=== PATIENT | female | born 1950 | race Asian ===

== ENCOUNTER 2020-07-12 12:32 | Outpatient (REF) | payer MEDICARE, SELFPAY ==
--- NOTE | 2020-07-12 12:37 | MM_ITS ---
EXAMINATION: MM SCREENING DIGITAL BREAST TOMOSYNTHESIS, BILATERAL CLINICAL INFORMATION: Screening. Asymptomatic. The lifetime risk of breast cancer based on the Tyrer-Cuzick Model is 4.0%. COMPARISON: Mammography: June 11, 2019 and studies dating back to July 23, 2011 TECHNIQUE: Digital breast tomosynthesis is performed in both the craniocaudal and mediolateral oblique views along with computer-aided detection (CAD). Synthesized 2D images are generated from the tomosynthesis. FINDINGS: The breasts are extremely dense, which lowers the sensitivity of mammography (ACR BI-RADS breast composition Category d). There are no significant masses, abnormal calcifications, or other abnormalities. MM/MM tomosynthesis screening BI IMPRESSION: There are no significant changes from prior study. ASSESSMENT: BI-RADS 1: Negative RECOMMENDATION: Routine annual mammography screening. This patient's information was entered into a reminder system with a target due date for their next mammogram.
== END 2020-07-12 12:33 | disposition home or self-care (01) ==
LOC: HO.MAMMO 12:32
PROVIDERS: PCP Internal Medicine; Visit Provider Internal Medicine
DX: Z12.31 Encounter for screening mammogram for malignant neoplasm of breast (principal)
CPT/HCPCS: 77063; 77067

== ENCOUNTER 2020-08-05 07:30 | Outpatient (REF) | payer MEDICARE, SELFPAY ==
[2020-08-05 08:11] LABS: MANUAL DIFF FLAG NO
[2020-08-05 08:16] LABS: Basophils Percent Auto 0.8 % (0-2); Eosinophils Absolute Auto 0.2 X10*3/uL (0.0-0.4); Eosinophils Percent Auto 3.3 % (0-4); Hematocrit 33.8 % (37-47); Imm Gran Abs Auto 0.01 X10*3/uL (0.00-0.03); Imm Gran Pct Auto 0.2 % (0.0-0.4); Lymphocytes Absolute Auto 1.9 X10*3/uL (1.2-4.9); Lymphocytes Percent Auto 37.1 % (20-40); Mean Corpuscular HGB Conc 32.5 g/dl (31.0-35.0); Mean Platelet Volume 8.8 fL (9.4-12.3); Monocytes Absolute Auto 0.5 X10*3/uL (0.1-1.2); Neutrophils Absolute Auto 2.5 X10*3/uL (2.0-8.3); Neutrophils Percent Auto 49.6 % (45-73); Platelet Count 312 X10*3/uL (160-400); Red Blood Count 3.93 X10*6/uL (4.20-5.50); Red Cell Distribution Width 12.9 % (11.0-16.0); White Blood Count 5.1 X10*3/uL (4.8-10.8)
[2020-08-05 08:34] LABS: Alanine Aminotransferase 19 U/L (0-31); Albumin Level 4.3 g/dL (3.5-5.0); Alkaline Phosphatase 45 U/L (39-117); Anion Gap 11 (12-20); Aspartate Amino Transferase 25 U/L (5-31); Bilirubin Total 0.3 mg/dL (0.0-1.0); Blood Urea Nitrogen 11 mg/dL (9-16); Calcium 8.6 mg/dL (8.4-10.2); Carbon Dioxide 29 mmol/L (22-29); Chloride 101 mmol/L (96-108); Cholesterol 168 mg/dL; Estimated Glomerular Filt Rate > 60; Glucose Fasting 102 mg/dL (60-99); HDL Cholesterol 78 mg/dL; LDL Cholesterol Calculated 76 mg/dl; Potassium 4.4 mmol/l (3.3-5.1); Sodium 137 mmol/L (135-145); Total Protein 7.2 g/dL (6.5-8.0); Triglycerides 72 mg/dL
[2020-08-05 08:40] LABS: Creatinine Urine 18.38 mg/dL; Microalbumin Urine < 5.0 mg/L
[2020-08-05 08:59] LABS: Thyroid Stimulating Hormone 0.87 uIU/mL (0.32-4.0); Vitamin D 25-OH Total 47.2 ng/mL (>30)
[2020-08-05 10:11] LABS: T4 Thyroxine 4.7 ug/dL (4.5-12.0)
[2020-08-07 08:31] LABS: Folate 19.1 ng/mL (> or = 4.0); Vitamin B12 746 pg/mL (200-900)
== END 2020-08-05 07:31 | disposition home or self-care (01) ==
LOC: HO.LAB 07:30
PROVIDERS: Visit Provider Internal Medicine
DX: E11.65 Type 2 diabetes mellitus with hyperglycemia (principal); E78.00 Pure hypercholesterolemia, unspecified; K21.9 Gastro-esophageal reflux disease without esophagitis; F20.0 Paranoid schizophrenia
CPT/HCPCS: 36415; 80053; 80061; 82043; 82306; 82607; 82746; 84436; 84443; 85025

== ENCOUNTER → 2020-08-29 13:30 | Outpatient (BNVA) | payer MEDICARE, SELFPAY | PROVIDERS: PCP Internal Medicine; Referring Provider Internal Medicine; Visit Provider Nurse Practitioner | DX: Z13.89 Encounter for screening for other disorder (principal) | CPT/HCPCS: Q3014 ==

== ENCOUNTER → 2020-10-06 13:50 | Outpatient (BNV) | payer MEDICARE, SELFPAY | PROVIDERS: PCP Internal Medicine; Visit Provider Internal Medicine Medical Oncology | DX: D64.9 Anemia, unspecified (principal); Z86.711 Personal history of pulmonary embolism; Z79.82 Long term (current) use of aspirin | CPT/HCPCS: 99212; 99213 ==

== ENCOUNTER → 2021-02-27 14:25 | Outpatient (BNVA) | payer MEDICARE, SELFPAY | PROVIDERS: PCP Internal Medicine; Visit Provider Nurse Practitioner | DX: K21.9 Gastro-esophageal reflux disease without esophagitis (principal); K59.04 Chronic idiopathic constipation | CPT/HCPCS: 99212 ==

== ENCOUNTER 2021-05-19 07:37 | Outpatient (REF) | payer MEDICARE, SELFPAY ==
[2021-05-19 09:01] LABS: MANUAL DIFF FLAG NO
[2021-05-19 09:19] LABS: Basophils Percent Auto 0.7 % (0-2); Eosinophils Absolute Auto 0.2 X10*3/uL (0.0-0.4); Eosinophils Percent Auto 3.6 % (0-4); Imm Gran Abs Auto 0.02 X10*3/uL (0.00-0.03); Imm Gran Pct Auto 0.3 % (0.0-0.4); Immature Retic Fraction 6.6 % (3.0-15.9); Lymphocytes Absolute Auto 2.3 X10*3/uL (1.2-4.9); Lymphocytes Percent Auto 38.6 % (20-40); Mean Corpuscular HGB Conc 33.3 g/dl (31.0-35.0); Mean Corpuscular Hemoglobin 27.7 pg (27.0-33.0); Mean Corpuscular Volume 83.1 fL (80-98); Mean Platelet Volume 9.8 fL (9.4-12.3); Monocytes Absolute Auto 0.4 X10*3/uL (0.1-1.2); Monocytes Percent Auto 7.3 % (2-11); Neutrophils Percent Auto 49.5 % (45-73); Platelet Count 289 X10*3/uL (160-400); Red Blood Count 4.33 X10*6/uL (4.20-5.50); Red Cell Distribution Width 12.7 % (11.0-16.0); Retic HGB Equivalent 32.4 pg (30.0-35.0); Reticulocyte Percent 1.7 % (0.5-1.8); Reticulocytes Absolute 0.071 X10*6/uL (0.026-0.095); White Blood Count 6.1 X10*3/uL (4.8-10.8)
[2021-05-19 09:29] LABS: Glucose Urine UA NEG (NEG); Leukocyte Esterase Urine TRACE (NEG); Nitrite Urine NEG (NEG); Specific Gravity - Urine <= 1.005 (1.005-1.025); Urine Blood NEG (NEG); Urine Ketones NEG (NEG); Urine Protein NEG (NEG-TRACE)
[2021-05-19 09:31] LABS: Appearance Urine CLEAR; Color Urine YELLOW
[2021-05-19 09:35] LABS: Alanine Aminotransferase 12 U/L (0-31); Albumin Level 4.7 g/dL (3.5-5.0); Alkaline Phosphatase 43 U/L (39-117); Anion Gap 13 (12-20); Aspartate Amino Transferase 20 U/L (5-31); Bilirubin Total 0.4 mg/dL (0.0-1.0); Blood Urea Nitrogen 9 mg/dL (9-16); Calcium 9.6 mg/dL (8.4-10.2); Carbon Dioxide 27 mmol/L (22-29); Chloride 103 mmol/L (96-108); Cholesterol 174 mg/dL; Estimated Glomerular Filt Rate > 60; Glucose Random 108 mg/dL (60-115); HDL Cholesterol 67 mg/dL; Iron 115 mcg/dL (30-160); LDL Cholesterol Calculated 88 mg/dl; Percent Iron Saturation 39 % (15-50); Potassium 4.6 mmol/L (3.3-5.1); Sodium 138 mmol/L (135-145); Total Iron Binding Capacity 295 mcg/dL (228-428); Total Protein 7.8 g/dL (6.5-8.0); Triglycerides 99 mg/dL; Unsaturated Iron Binding 180 ug/dL
[2021-05-19 09:36] LABS: Creatinine Urine 23.64 mg/dL; Microalbumin Urine < 5.0 mg/L
[2021-05-19 10:05] LABS: Free T4 (Free Thyroxine) 1.03 ng/dL (0.71-1.85); Thyroid Stimulating Hormone 1.03 uIU/mL (0.32-4.0); Vitamin D 25-OH Total 54.6 ng/mL (>30)
[2021-05-19 10:13] LABS: Mucus Urine TRACE /LPF; RBC Urine 0 /HPF (0); Squamous Epithelial Cell Urine TRACE /LPF
[2021-05-19 10:54] LABS: Ferritin 215 ng/mL (10-250)
[2021-05-21 08:23] LABS: Folate > 20.0 ng/mL (> or = 4.0); Vitamin B12 1000 pg/mL (200-900)
[2021-05-22 12:55] LABS: Estimated Average Glucose 123 mg/dL; Hemoglobin A1c % 5.9 %
== END 2021-05-19 07:38 | disposition home or self-care (01) ==
LOC: HO.LAB 07:37
PROVIDERS: PCP Internal Medicine; Visit Provider Internal Medicine
DX: D64.9 Anemia, unspecified (principal); E11.65 Type 2 diabetes mellitus with hyperglycemia; E78.00 Pure hypercholesterolemia, unspecified
CPT/HCPCS: 36415; 80053; 80061; 81001; 82043; 82306; 82607; 82728; 82746; 83036; 83540; 84439; 84443; 85025; 85045

== ENCOUNTER 2021-07-20 13:19 | Outpatient (REF) | payer MEDICARE, SELFPAY ==
--- NOTE | ~2021-07-20 | MM_ITS ---
EXAMINATION: MM SCREENING DIGITAL BREAST TOMOSYNTHESIS, BILATERAL CLINICAL INFORMATION: Screening. Asymptomatic. The lifetime risk of breast cancer based on the Tyrer-Cuzick Model is 4%. COMPARISON: Mammography: 07/12/2020, 06/11/2019, 06/05/2018 TECHNIQUE: Digital breast tomosynthesis is performed in both the craniocaudal and mediolateral oblique views along with computer-aided detection (CAD). Synthesized 2D images are generated from the tomosynthesis. FINDINGS: The breasts are heterogeneously dense, which may obscure small masses (ACR BI-RADS breast composition Category c). Breast tissue composition borders on extremely dense. Parenchymal pattern is similar to prior study. No significant mass or architectural abnormality. No abnormal calcifications. There is deodorant artifact overlying both axilla, on the skin on tomography. The skin contours are smooth. No significant changes. MM/MM tomosynthesis screening BI IMPRESSION: No mammographic evidence of malignancy. ASSESSMENT: BI-RADS 2: Benign RECOMMENDATION: Routine annual mammography screening. This patient's information was entered into a reminder system with a target due date for their next mammogram.
== END 2021-07-20 13:20 | disposition home or self-care (01) ==
LOC: HO.MAMMO 13:19
PROVIDERS: Visit Provider Internal Medicine
DX: Z12.31 Encounter for screening mammogram for malignant neoplasm of breast (principal)
CPT/HCPCS: 77063; 77067

== ENCOUNTER 2021-12-05 14:29 | Outpatient (REF) | payer MEDICARE, SELFPAY ==
--- NOTE | ~2021-12-05 | MM_ITS ---
EXAMINATION: BONE DENSITOMETRY CLINICAL INDICATION: History of osteopenia. Other specified disorders of bone density and structure. Postmenopausal. COMPARISON: Previous BD dated 11/20/2018 and baseline BD dated 10/17/2007. TECHNIQUE: Using a HeadMix DXA System (software version: 13.1) manufactured by [employer], dual-energy x-ray absorptiometry was performed of the lumbar spine and left hip. The images are of good technical quality. Summary results are attached. FINDINGS: AP SPINE L1-L3 (excluding L4): The data of L1-L4 has been changed to exclude the L4 vertebral body, because degenerative sclerosis at this level may cause overestimation of lumbar spine density. Current: BMD 0.921 g/cm2, Z-score 0.0, T-score -2.1, osteopenia, 3.0% decrease from previous, 8.4% decrease from baseline (<5% change is not significant). Prior: BMD 0.949 g/cm2. Baseline: BMD 1.005 g/cm2. LEFT FEMUR, NECK: Current: BMD 0.680 g/cm2, Z-score -0.6, T-score -2.6, osteoporosis. Prior: BMD 0.709 g/cm2. Baseline: BMD 0.741 g/cm2. LEFT FEMUR, TOTAL: Current: BMD 0.817 g/cm2, Z-score 0.3, T-score -1.5, osteopenia, 3.2% decrease from previous, 11.2% decrease from baseline (<5% change is not significant). Prior: BMD 0.844 g/cm2. Baseline: BMD 0.920 g/cm2. IDENTIFIED RISK FACTORS: Menopause. HISTORY OF FRACTURE: None listed. MEDICATIONS: Vitamin D. MM/XR DEXA axial skeleton IMPRESSION: 1. DIAGNOSIS: Osteoporosis based on the lowest T-score value of -2.6 in the femoral neck applying World Health Organization criteria. 2. 10-YEAR FRACTURE RISK PREDICTION, FRAX: Major osteoporotic fracture (clinical spine, forearm, hip or shoulder) 8.6%. Hip fracture 2.3%. 3. Treatment Recommendations: NOF guidelines recommend consideration for treatment in postmenopausal women and men age 50 and older presenting with the following: -A hip or vertebral (clinical or morphometric) fracture. -T-score less than or equal to -2.5 at the femoral neck or spine after appropriate evaluation to exclude secondary causes. -Low bone mass at the hip or spine and a 10-year fracture probability by FRAX of greater than or equal to 3% for hip fracture or greater than or equal to 20% for major osteoporotic fracture based on the [place] adapted WHO algorithm. 4. Other Recommendations: All treatment decisions require clinical judgment and consideration of individual patient factors, including patient preferences, comorbidities, previous drug use, risk factors not captured in the FRAX model (e.g. frailty, falls, vitamin D deficiency, increased bone turnover, interval significant decline in bone density) and possible under or overestimation of fracture risk by FRAX. Additional medical evaluation for secondary cause of low bone mineral density may be appropriate. FUTURE SCAN RECOMMENDATION: People with diagnosed cases of osteoporosis or at high risk for fracture should have regular bone mineral density tests. For patients eligible for Medicare, routine testing is allowed once every 2 years. The testing frequency can be increased to one year for patients who have rapidly progressing disease, those who are receiving or discontinuing medical therapy to restore bone mass, or have additional risk factors.
== END 2021-12-05 14:30 | disposition home or self-care (01) ==
LOC: HO.MAMMO 14:29
PROVIDERS: PCP Internal Medicine; Visit Provider Internal Medicine
DX: Z13.820 Encounter for screening for osteoporosis (principal); M85.80 Other specified disorders of bone density and structure, unspecified site; M81.0 Age-related osteoporosis without current pathological fracture; Z78.0 Asymptomatic menopausal state
CPT/HCPCS: 77080

== ENCOUNTER → 2022-02-25 13:39 | Outpatient (BNVA) | payer MEDICARE, SELFPAY | PROVIDERS: PCP Internal Medicine; Visit Provider Nurse Practitioner | DX: K21.9 Gastro-esophageal reflux disease without esophagitis (principal); K59.04 Chronic idiopathic constipation; Z79.899 Other long term (current) drug therapy | CPT/HCPCS: 99212 ==

== ENCOUNTER 2022-07-22 13:38 | Outpatient (REF) | payer MEDICARE, SELFPAY ==
--- NOTE | ~2022-07-22 | MM_ITS ---
EXAMINATION: MM SCREENING DIGITAL BREAST TOMOSYNTHESIS, BILATERAL CLINICAL INFORMATION: Screening. Asymptomatic. COMPARISON: Mammography: 07/20/2021, 07/12/2020, 06/11/2019 TECHNIQUE: Digital breast tomosynthesis is performed in both the craniocaudal and mediolateral oblique views along with computer-aided detection (CAD). Synthesized 2D images are generated from the tomosynthesis. FINDINGS: The breasts are extremely dense, which lowers the sensitivity of mammography (ACR BI-RADS breast composition Category d). There is no developing density or architectural abnormality. No significant changes from prior studies. There are no significant masses, abnormal calcifications, or other abnormalities. The axilla and skin contours are unremarkable. MM/MM tomosynthesis screening BI IMPRESSION: No mammographic evidence of malignancy. ASSESSMENT: BI-RADS 1: Negative RECOMMENDATION: Routine annual mammography screening. This patient's information was entered into a reminder system with a target due date for their next mammogram.
== END 2022-07-22 13:39 | disposition home or self-care (01) ==
LOC: HO.MAMMO 13:38
PROVIDERS: PCP Internal Medicine; Visit Provider Internal Medicine
DX: Z12.31 Encounter for screening mammogram for malignant neoplasm of breast (principal)
CPT/HCPCS: 77063; 77067

== ENCOUNTER → 2022-08-27 13:28 | Outpatient (BNVA) | payer MEDICARE, SELFPAY | PROVIDERS: PCP Internal Medicine; Visit Provider Nurse Practitioner | DX: K21.9 Gastro-esophageal reflux disease without esophagitis (principal); K59.04 Chronic idiopathic constipation; Z79.899 Other long term (current) drug therapy | CPT/HCPCS: 99212 ==

== ENCOUNTER 2023-07-29 14:44 | Outpatient (REF) | payer MEDICARE, SELFPAY | END 2023-07-29 14:45 | disposition home or self-care (01) | LOC: HO.MAMMO 14:44 | PROVIDERS: Visit Provider Internal Medicine | DX: Z12.31 Encounter for screening mammogram for malignant neoplasm of breast (principal) | CPT/HCPCS: 77063; 77067 ==

== ENCOUNTER → 2023-07-29 14:45 | Outpatient (BNV) | payer MEDICARE, SELFPAY | PROVIDERS: Visit Provider Radiology Diagnostic Radiology | DX: Z12.31 Encounter for screening mammogram for malignant neoplasm of breast (principal) | CPT/HCPCS: 77063; 77067 ==

== ENCOUNTER 2023-08-27 13:00 | Outpatient (AMB) | payer MEDICARE, SELFPAY ==
--- NOTE | 2023-08-27 13:03 | MHC.OFFVIS ---
Intake Vital Signs 08/27/23 13:08 Height 5 ft 4 in Weight 114 lb 10.246 oz BMI 19.7 BP 121/88 Blood Pressure Location Lt brachial Position Sitting Pulse 104 H Intake Visit Reasons: 1 year fu Intake Note: Evita presents in the office as a 1 year follow up. CC: No concerns just routine follow up. 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 She remains satisfied with her GI regimen. She will not be due for colonoscopy until 2023. ROV 1 year per pt request (2) Chronic idiopathic constipation: Code(s): K59.04 - Chronic idiopathic constipation Medications: Refilled pantoprazole 40 mg PO DAILY 90 tabs 1RF K21.9 - Gastro-eso phageal reflux dis ease without esoph agitis prucalopride (Mote grity) 2 mg PO DAILY 90 tabs 3RF K59.04 - Chronic i diopathic constipa tion docusate sodium 100 mg PO TID 90 caps 1RF K21.9 - Gastro-eso phageal reflux dis ease without esoph agitis TODAY'S VISIT [place] # translates per patient request She continues to do well on her motegrity and her pantoprazole along with colace. She remains satisfied with her GI regimen! She will be due for colonoscopy screening next year, will discuss this at her next appt. ROV 6 mos. PFS Medical History Anemia Depression GERD (gastroesophageal reflux disease) History of pulmonary embolism Hypertension Hypertriglyceridemia Paranoid schizophrenia Type 2 diabetes mellitus with hyperglycemia Vitamin B12 deficiency Surgical History History of esophagogastroduodenoscopy (EGD) Hx of colonoscopy Family History Mother Diabetes Social History Household Members: Spouse Housing: House Are you a primary nursing care attendant to a significant other at home: No Do you presently have visiting nurse or other home services: No Alcohol intake: never Patient Tobacco Use Status: Never used Tobacco e-Cigarette/Vaping Use: Never Used Second Hand Smoke Exposure: No service: No Current occupational status: retired Cognitive needs: No Hearing needs: No Vision needs: Yes (glasses) Review of Systems Const Denies fatigue, Denies fever(s), Denies night sweats, Denies poor appetite and Denies weight loss Eyes Details: Glasses Reports requires corrective lenses ENT Reports Normal hearing present, Denies dental pain, Denies dysphagia, Denies hearing loss, Denies mouth pain, Denies odynophagia, Denies throat swelling, Denies tongue swelling and Reports other (Dentition adequate) Card Reports no additional complaints Resp Reports no additional complaints GI Denies abdominal pain, Denies melena, Denies bloating, Denies hematochezia, Reports constipation, Denies GI cramping, Denies dysphagia, Denies excessive flatus, Denies early satiety, Reports heartburn, Denies diarrhea, Denies nausea, Denies odynophagia, Denies vomiting and Denies hematemesis Skin/Breast Denies pruritus, Denies lesions, Denies rash and Denies jaundice Neuro Reports Normal hearing present and Denies Abnormal speech present Endo Denies fatigue Aller/Immun Denies throat swelling and Denies tongue swelling Physical Exam Vital Signs: Last Vital Signs Pulse 104 H 08/27/23 13:08 BP 121/88 08/27/23 13:08 BMI result Body Mass Index 19.7 Const General: cooperative, no acute distress, well developed and well groomed Nutritional Appearance: average body habitus and well nourished Orientation/consciousness: oriented to person, oriented to place and oriented to time Limitations: language barrier HEENT Head: Yes normocephalic and Yes atraumatic Eyes General: appearance normal, both eyes and all related structures Pupils: Equal, round and reactive pupils present Neck Neck: Yes normal visual inspection and Yes no lymphadenopathy Thyroid: Thyroid normal Resp Effort & Inspection: normal respiratory effort and able to speak in complete sentences Auscultation: clear to auscultation bilaterally Cardio Rate: regular rate Rhythm: regular rhythm Heart sounds: Normal, physiologic split S2 sound present Peripheral pulses: radial pulses present and posterior tibial pulses present GI Inspection: No distended and No Abdominal panniculus present Palpation (GI): Soft to palpation, nontender, no guarding, not rigid and No hepatosplenomegaly present Percussion: Yes normal to percussion Auscultation: normal bowel sounds Rectal Exam - Female: deferred Skin General skin exam: no rashes or lesions noted, turgor normal, skin not dry, no jaundice, No spider nevi and no striae Rashes: no rashes Nails: normal Neuro General: oriented to person, oriented to place and oriented to time Cranial nerves: Yes Equal, round and reactive pupils present and Yes Normal hearing present Speech: No Abnormal speech present Extrem General: Yes normal to inspection, No clubbing, No cyanosis and No edema Psych Appearance: grossly normal and well kempt Mental Status: mental status grossly normal Speech and movement: Normal speech and movement present Affect: normal affect Attitude: cooperative Thought process: Normal thought process present and not confabulating Thought content: Normal thought content present Insight: Limited insight present (Psych) Judgement: Limited judgement present (Psych) Assessment & Plan Assessment & Plan (1) Chronic idiopathic constipation: Code(s): K59.04 - Chronic idiopathic constipation (2) GERD (gastroesophageal reflux disease): Code(s): K21.9 - Gastro-esophageal reflux disease without esophagitis Qualifiers: Esophagitis presence: without esophagitis Qualified Code(s): K21.9 - Gastro-esophageal reflux disease without esophagitis Plan [place] # translates per patient request She continues to do well on her motegrity and her pantoprazole along with colace. She remains satisfied with her GI regimen! She will be due for colonoscopy screening next year, will discuss this at her next appt. ROV 6 mos. Medications: Refilled pantoprazole 40 mg PO DAILY 100 tabs 3RF K21.9 - Gastro-esophageal reflux disease without esophagitis docusate sodium 100 mg PO TID 90 days 270 caps 3RF K21.9 - Gastro-esophageal reflux disease without esophagitis Coding Level of Care Code Est Pt Level 3 (17385) Diagnoses Chronic idiopathic constipation K59.04 Gastroesophageal reflux disease without esophagitis K21.9 Esophagitis presence: without esophagitis
[2023-08-27 13:08] VITALS: BP 121/88; PULSE 104; BMI 19.7
== END 2023-08-27 14:07 | disposition home or self-care (01) ==
PROVIDERS: Visit Provider Nurse Practitioner
DX: K59.04 Chronic idiopathic constipation (principal); K21.9 Gastro-esophageal reflux disease without esophagitis
CPT/HCPCS: 99213

== ENCOUNTER → 2023-08-27 13:00 | Outpatient (BNVA) | payer MEDICARE, SELFPAY | PROVIDERS: Visit Provider Nurse Practitioner | DX: K59.04 Chronic idiopathic constipation (principal); K21.9 Gastro-esophageal reflux disease without esophagitis | CPT/HCPCS: 99212 ==

== ENCOUNTER 2023-09-01 12:33 | Outpatient (AMB) | payer MEDICARE, SELFPAY ==
--- NOTE | 2023-09-01 12:38 | A.OFFPC_ITS ---
Vital Signs 09/01/23 12:39 Height 5 ft 4 in Weight 115 lb 0.2 oz BMI 19.7 BP 122/72 Blood Pressure Location Lt brachial Position Sitting Pulse 88 Pulse Source Pulse Oximeter Pulse Oximetry (%) 98 Oxygen Delivery Method Room Air Intake Visit Reasons: medication f/u - need A1C Allergies No Known Allergies [No Known Allergies*] Allergy (Verified 03/04/23 15:50) Tobacco use date assessed: 09/01/23 Fall risk assessment: No Falls in past year Last assessed Fall Risk: 09/01/23 HPI medication f/u - need A1C HPI Details 72-year-old female with diabetes mellitu s controlled hypertension constipation history of pulmonary embolism chronic anemia and recurrent major depression last seen in May 2022. Patient is here for follow-up patient's colonoscopy was done in March 2014, mammogram is up-to-date bone density is up-to-date patient follows up with Gastroenterology for GERD constipation, on Motegrity and pantoprazole along with Colace. Patient follows up with hematolog y oncology previously on Coumadin for pulmonary embolism maintained on baby aspirin doing good.. From the blood work February 2023 patient has chronic anemia. due to cognitive chnages - partner states forgetting and was advised neurology evaluat [facility] Medical History Anemia Depression GERD (gastroesophageal reflux disease) History of pulmonary embolism Hypertension Hypertriglyceridemia Paranoid schizophrenia Type 2 diabetes mellitus with hyperglycemia Vitamin B12 deficiency Surgical History History of esophagogastroduodenoscopy (EGD) Hx of colonoscopy Family History Mother Diabetes Social History Household Members: Spouse Housing: House Are you a primary care center manager to a significant other at home: No Do you presently have visiting nurse or other home services: No Alcohol intake: never Patient Tobacco Use Status: Never used Tobacco e-Cigarette/Vaping Use: Never Used Second Hand Smoke Exposure: No service: No Current occupational status: retired Cognitive needs: No Hearing needs: No Vision needs: Yes (glasses) Questionnaire Thrive Questionnaire Date Thrive assessed: 05/24/21 AUDIT C Alcohol Use Questionnaire (AUDIT-C) 1. How often do you have a drink containing alcohol?: Never (0) 2. How many drinks containing alcohol do you have on a typical day when you are drinking?: 1 or 2 (0) 3. How often do you have six or more drinks on one occasion?: Never (0) Total Score: 0 SHERIF-7 AMB Questionnaire SHERIF-7 Date SHERIF - 7 assessed: 05/24/22 Source: Developed by Drs. Berlin Dubois, Lakshmi Bob, Pratik Kelly and colleagues, with an educational catalina from [employer]. Physical exam (Primary Care) Vital Signs: Last Vital Signs Pulse 88 09/01/23 12:39 BP 122/72 09/01/23 12:39 Pulse Ox 98 09/01/23 12:39 Oxygen Delivery Method Room Air 09/01/23 12:39 BMI result Body Mass Index 19.7 Tobacco/Smoking Status: Tobacco use Status Tobacco use date assessed 09/01/23 09/01/23 12:45 Patient Tobacco Use Status Never used Tobacco 09/01/23 12:45 e-Cigarette/Vaping Use Never Used 09/01/23 12:45 Thrive Assessment: Date of Thrive Assessment Date Thrive assessed 05/24/21 09/01/23 12:45 Const General: alert; No acute distress Eyes Conjunctivae: conjunctivae normal Resp Auscultation: clear to auscultation bilaterally Cardio Rate: regular rate Rhythm: regular rhythm GI Inspection: Yes normal to inspection Extrem General: Yes normal to inspection and No edema Results AMB Hemoglobin A1c AMB Hemoglobin A1c 6.7 % Last Edit by STEPHANIE Tellez on 09/01/23 12:48 Results Reviewed Results Reviewed: Laboratory Last Values Hgb A1c (Clinic) 6.7 % (4.0-6.0) H 09/01/23 11:41 Assessment and Plan Assessment & Plan (1) Type 2 diabetes mellitus with hyperglycemia: Comment: Dr. Lema Code(s): E11.65 - Type 2 diabetes mellitus with hyperglycemia Qualifiers: Diabetes mellitus long term care pharmacist insulin use: without long term care pharmacist use Qualified Code(s): E11.65 - Type 2 diabetes mellitus with hyperglycemia Plan: Decrease the amount of carbohydrate intake, pasta, bread, rice and potatoes are all sugar and that is aside from all the sweet stuff, remember that fruits are good but they are Sweet also. Hemoglobin A1c goal of less than 7.0 patient on diet control (2) Hypertension: Code(s): I10 - Essential (primary) hypertension Qualifiers: Hypertension type: essential hypertension Qualified Code(s): I10 - Essential (primary) hypertension Plan: Continue with blood pressure medication. Decrease salt intake and exercise patient takes lisinopril 5 mg once a day (3) GERD (gastroesophageal reflux disease): Code(s): K21.9 - Gastro-esophageal reflux disease without esophagitis Qualifiers: Esophagitis presence: without esophagitis Qualified Code(s): K21.9 - Gastro-esophageal reflux disease without esophagitis Plan: Avoid the foods that causes that usually spicy foods, tomato products, juices, coffee, soda and foods that your sensitive to. After eating do not lie down, allow 3-4 hours before in lie down. And keep the head of bed above 30 degrees to avoid the acid from going up. (4) Hypercholesterolemia: Code(s): E78.00 - Pure hypercholesterolemia, unspecified Plan: Avoid fried foods, chicken skin, eggs, butter margarine, pastries and meat. Be it pork or beef they have a lot of cholesterol LDL goal of less than 100. Last blood work was done in 2020 (5) Chronic idiopathic constipation: Code(s): K59.04 - Chronic idiopathic constipation Plan: Patient follows up with Gastroenterology on Motegrity (6) Pulmonary embolism: Comment: 2010, 1 year of anticoagulation Code(s): I26.99 - Other pulmonary embolism without acute cor pulmonale Qualifiers: Pulmonary embolism type: unspecified Chronicity: acute Acute cor pulmonale presence: unspecified Qualified Code(s): I26.99 - Other pulmonary embolism without acute cor pulmonale Plan: Patient follows up with hematology oncology on aspirin (7) Recurrent major depression: Comment: Dr. Croft (07/2020) every 3 weeks CHD Code(s): F33.9 - Major depressive disorder, recurrent, unspecified Plan: Continue with counseling and therapy (8) Cognitive changes: Code(s): R41.89 - Other symptoms and signs involving cognitive functions and awareness Orders: Orders AMB Hemoglobin A1c Today E11.65 - Type 2 diabetes mellitus with hyperglycemia Comprehensive Met. Panel Today E11.65 - Type 2 diabetes mellitus with hyperglycemia Complete Blood Count Auto Diff Today E11.65 - Type 2 diabetes mellitus with hyperglycemia Lipid Panel Today E11.65 - Type 2 diabetes mellitus with hyperglycemia, E78.00 - Pure hypercholesterolemia, unspecified Microalbumin, Random (w Creat) Today E11.65 - Type 2 diabetes mellitus with hyperglycemia IRON PROFILE Today E11.65 - Type 2 diabetes mellitus with hyperglycemia Free T4 (Free Thyroxine) Today E11.65 - Type 2 diabetes mellitus with hyperglycemia Thyroid Stimulating Hormone Today E11.65 - Type 2 diabetes mellitus with hyperglycemia Vitamin B12 and Folate Today E11.65 - Type 2 diabetes mellitus with hyperglycemia Ferritin Today E11.65 - Type 2 diabetes mellitus with hyperglycemia Creatinine Urine Today E11.65 - Type 2 diabetes mellitus with hyperglycemia Reticulocyte Count Today E11.65 - Type 2 diabetes mellitus with hyperglycemia Vitamin D 25-OH Total Today E11.65 - Type 2 diabetes mellitus with hyperglycemia Referrals Neurology Referral R41.89 - Other symptoms and signs involving cognitive functions and awareness Coding Level of Care Code Est Pt Level 4 (74425) Diagnoses Type 2 diabetes mellitus with hyperglycemia, without long-term current use of insulin E11.65 Diabetes mellitus intermediate insulin use: without intermediate use Essential hypertension I10 Hypertension type: essential hypertension Gastroesophageal reflux disease without esophagitis K21.9 Esophagitis presence: without esophagitis Hypercholesterolemia E78.00 Chronic idiopathic constipation K59.04 Acute pulmonary embolism, unspecified pulmonary embolism type, unspecified whether acute cor pulmonale present I26.99 Pulmonary embolism type: unspecified Chronicity: acute Acute cor pulmonale presence: unspecified Recurrent major depression F33.9 Cognitive changes R41.89
[2023-09-01 12:39] VITALS: BP 122/72; PULSE 88; O2SAT 98; BMI 19.7
== END 2023-09-01 13:25 | disposition home or self-care (01) ==
PROVIDERS: PCP Internal Medicine; Visit Provider Internal Medicine
DX: E11.65 Type 2 diabetes mellitus with hyperglycemia (principal); I26.99 Other pulmonary embolism without acute cor pulmonale; F33.9 Major depressive disorder, recurrent, unspecified; K21.9 Gastro-esophageal reflux disease without esophagitis; I10 Essential (primary) hypertension; E78.00 Pure hypercholesterolemia, unspecified; K59.04 Chronic idiopathic constipation; R41.89 Other symptoms and signs involving cognitive functions and awareness
CPT/HCPCS: 83036; 99214

== ENCOUNTER 2023-11-24 08:23 | Outpatient (REF) | payer MEDICARE, SELFPAY ==
[2023-11-24 08:37] LABS: MANUAL DIFF FLAG NO
[2023-11-24 09:36] LABS: Basophils Percent Auto 0.6 % (0-2); Eosinophils Absolute Auto 0.2 X10*3/uL (0.0-0.4); Eosinophils Percent Auto 2.7 % (0-4); Hematocrit 33.2 % (37.0-47.0); Hemoglobin 11.2 g/dl (12.0-16.0); Imm Gran Abs Auto 0.01 X10*3/uL (0.00-0.03); Imm Gran Pct Auto 0.2 % (0.0-0.4); Immature Retic Fraction 12.2 % (3.0-15.9); Lymphocytes Absolute Auto 2.6 X10*3/uL (1.2-4.9); Mean Corpuscular HGB Conc 33.7 g/dl (31.0-35.0); Mean Corpuscular Hemoglobin 28.3 pg (27.0-33.0); Mean Corpuscular Volume 83.8 fL (80.0-98.0); Mean Platelet Volume 9.3 fL (9.4-12.3); Monocytes Absolute Auto 0.5 X10*3/uL (0.1-1.2); Monocytes Percent Auto 7.7 % (2-11); Neutrophils Absolute Auto 3.1 x10*3/uL (2.0-8.3); Neutrophils Percent Auto 48.8 % (45-73); Platelet Count 293 X10*3/uL (160-400); Red Blood Count 3.96 X10*6/uL (4.20-5.50); Retic HGB Equivalent 31.9 pg (30.0-35.0); Reticulocyte Percent 1.5 % (0.5-1.8); Reticulocytes Absolute 0.058 X10*6/uL (0.026-0.095); White Blood Count 6.4 X10*3/uL (4.8-10.8)
[2023-11-24 10:09] LABS: Alanine Aminotransferase 18 U/L (0-31); Albumin Level 4.3 g/dL (3.5-5.0); Alkaline Phosphatase 45 U/L (39-117); Anion Gap 12 (12-20); Aspartate Amino Transferase 25 U/L (5-31); Bilirubin Total 0.3 mg/dL (0.0-1.0); Blood Urea Nitrogen 12 mg/dL (9-16); Calcium 9.3 mg/dL (8.4-10.2); Carbon Dioxide 28 mmol/L (22-29); Chloride 106 mmol/L (96-108); Cholesterol 166 mg/dL (<200); Estimated Glomerular Filt Rate > 60; Glucose Random 123 mg/dL (60-115); HDL Cholesterol 81 mg/dL (>40); Iron 94 mcg/dL (30-160); LDL Cholesterol Calculated 74 mg/dL (<100); Percent Iron Saturation 34 % (15-50); Potassium 4.3 mmol/L (3.3-5.1); Sodium 142 mmol/L (135-145); Total Iron Binding Capacity 276 mcg/dL (228-428); Total Protein 7.7 g/dL (6.5-8.0); Triglycerides 59 mg/dL (<150); Unsaturated Iron Binding 182 ug/dL
[2023-11-24 10:26] LABS: Ferritin 144 ng/mL (10-250); Free T4 (Free Thyroxine) 0.96 ng/dL (0.71-1.85); Thyroid Stimulating Hormone 1.04 uIU/mL (0.32-4.0)
[2023-11-24 10:30] LABS: Folate 14.3 ng/mL (> or = 4.0); Vitamin B12 919 pg/mL (200-900)
[2023-11-24 14:54] LABS: Creatinine Urine 30.76 mg/dL; Microalbum/Creatinine Ratio Ur 22.7 ug/mg cr (<30)
[2023-11-24 15:01] LABS: Creatinine Urine 30.55 mg/dL
== END 2023-11-24 08:24 | disposition home or self-care (01) ==
LOC: HO.LAB 08:23
PROVIDERS: PCP Internal Medicine; Visit Provider Internal Medicine
DX: E11.65 Type 2 diabetes mellitus with hyperglycemia (principal); E78.00 Pure hypercholesterolemia, unspecified
CPT/HCPCS: 36415; 80053; 80061; 82043; 82306; 82570; 82607; 82728; 82746; 83540; 84439; 84443; 85025; 85045

== ENCOUNTER 2023-11-27 14:08 | Outpatient (AMB) | payer MEDICARE, SELFPAY ==
--- NOTE | 2023-11-27 14:10 | A.OFFVIS_ITS ---
Intake Vital Signs 11/27/23 14:12 Height 5 ft 4 in Weight 112 lb 4 oz BMI 19.3 BP 96/72 Blood Pressure Location Rt brachial Position Sitting Respiration 17 Pulse 87 Pulse Source Pulse Oximeter Pulse Oximetry (%) 98 Oxygen Delivery Method Room Air Intake Visit Reasons: 1/3LVM+Let INP-Other symp and sign inv cog fuc cora Intake Note: Pt presents for new pt evaluation for cognitive changes. Certified Adaptive Physical Educator Required: No Allergies No Known Allergies [No Known Allergies*] Allergy (Verified 11/27/23 14:12) Medication List - Last Reconciled 11/27/23 by Gianna Franco MD ascorbate calcium (vitamin C) 500 mg PO DAILY aspirin (Adult Aspirin Regimen) 81 mg PO DAILY benztropine 0.5 mg PO BID docusate sodium 100 mg PO TID 90 days fluoxetine (Prozac) 40 mg PO DAILY lisinopril 5 mg PO DAILY 90 days lorazepam (Ativan) 1 mg PO TID PRN mirtazapine 15 mg PO BEDTIME mometasone 0.1% 1 appl topical DAILY multivitamin 1 cap PO DAILY olanzapine 15 mg PO BEDTIME olanzapine 5 mg PO BID olanzapine (Zyprexa) 5 mg PO DAILY omega 4-pys-ffl-fish oil 1,200 (144-216) mg (Fish Oil) 1 cap PO DAILY pantoprazole 40 mg PO DAILY prucalopride (Motegrity) 2 mg PO DAILY simvastatin 5 mg PO QPM HPI HPI Comments History of Present Illness Details 73y/o female with paranoid Schizophrenia , PTSD comes for evaluation of memory issues. she is accompanied by her who helps with her history. In 1995 she overdosed on stellazine .In 2013 her mother and her psychiatric illness worsened and she was hospitalized. she has been having memory issues since then It has progressed since then . Her memory issues are mostly short term but also has some problems recalling halfway events.. she frequently loses things, misplaces things, repeats herself, forgets conversations, confused with her own family members does not remember her grand nieces. she has trouble using her remote. she does not cook, or drive . her supervises while she is dressing and showering.she can sheela the phone but calls only her sister. No h/o head injury . [facility] Medical History (Updated 11/27/23 @ 14:51 by Gianna Franco MD) Mixed dementia History of pulmonary embolism Hypertension Hypertriglyceridemia Anemia Vitamin B12 deficiency GERD (gastroesophageal reflux disease) Paranoid schizophrenia Depression Type 2 diabetes mellitus with hyperglycemia Surgical History History of esophagogastroduodenoscopy (EGD) Hx of colonoscopy Family History Mother Diabetes Social History Household Members: Spouse Housing: House Are you a primary resident care manager rn to a significant other at home: No Do you presently have visiting nurse or other home services: No Alcohol intake: never Patient Tobacco Use Status: Never used Tobacco e-Cigarette/Vaping Use: Never Used Second Hand Smoke Exposure: No service: No Current occupational status: retired Cognitive needs: No Hearing needs: No Vision needs: Yes (glasses) Review of Systems Neuro Reports confusion Psych Reports confusion Physical Exam Vital Signs: Last Vital Signs Pulse 87 11/27/23 14:12 Resp 17 11/27/23 14:12 BP 96/72 11/27/23 14:12 Pulse Ox 98 11/27/23 14:12 Oxygen Delivery Method Room Air 11/27/23 14:12 BMI result Body Mass Index 19.3 Const Other: she has involuntary truncal movements General: cooperative, comfortable, no acute distress and confusion Nutritional Appearance: average body habitus Orientation/consciousness: confusion Eyes Pupils: Equal, round and reactive pupils present Neuro General: gait normal, tone normal, moves all extremities, no focal motor deficits and confusion Cranial nerves: Yes Facial sensation intact/muscles of mastication intact, Yes Equal, round and reactive pupils present, Yes Bilaterally intact EOM present, Yes Nystagmus not present and Yes Normal facial strength present Cognition (Neuro): abnormal cognition Gait exam (Neuro): Normal gait present Motor exam (neuro): 5/5 motor strength present throughout and Normal motor muscle tone present throughout Deep tendon reflexes (DTR's): Right triceps reflex intensity grade: 2+, Left triceps reflex intensity grade: 2+, Rt Biceps (C5, C6): 2+, Left biceps reflex intensity grade: 2+, Right brachioradialis reflex intensity grade: 2+, Left brachioradialis reflex intensity grade: 2+, Right patellar reflex intensity grade: 2+ and Left patellar reflex intensity grade: 2+ Coordination: [id number] test normal Orientation Where are we (state) (county) (town or city) (hospital) (floor)?: state, town or city, hospital/clinic and floor Registration Name of 3 unrelated objects clearly and slowly, then ask patient to repeat all 3 of them. (1st repeat determines score. Make sure they can repeat all three): object 1, object 2 and object 3 Language Show patient a wristwatch & ask what it is. Repeat for pencil.: watch and pencil Ask the patient to 'take a piece of paper with their right hand' 'fold paper in half' 'place paper on floor': take paper in right hand and fold paper in half Score Score: 11 Assessment & Plan Assessment & Plan (1) Mixed dementia: Comment: worsened by schizophrenia , medications, PTSD etc. Code(s): G30.9 - Alzheimer's disease, unspecified; F01.50 - Vascular dementia, unspecified severity, without behavioral disturbance, psychotic disturbance, mood disturbance, and anxiety; F02.80 - Dementia in other diseases classified elsewhere, unspecified severity, without behavioral disturbance, psychotic dist urbance, mood disturbance, and anxiety Plan Reviewed her labs I will do MRI Brain to r/o structural causes will refer to speech and cognitive therapy. will trial her on namenda XR 7mg qd Orders: Orders MR brain wo con w neuroquant Today F01.50 - Vascular dementia, unspecified severity, without behavioral disturbance, psychotic disturbance, mood disturbance, and anxiety, F02.80 - Dementia in other diseases classified elsewhere, unspecified severity, without behavioral disturbance, psychotic disturbance, mood disturbance, and anxiety, G30.9 - Alzheimer's disease, unspecified Referrals Speech and Hearing Referral F01.50 - Vascular dementia, unspecified severity, without behavioral disturbance, psychotic disturbance, mood disturbance, and anxiety, F02.80 - Dementia in other diseases classified elsewhere, unspecified severity, without behavioral disturbance, psychotic disturbance, mood disturbance, and anxiety, G30.9 - Alzheimer's disease, unspecified Medications: New memantine 7 mg PO DAILY 30 ea 3RF memantine 7 mg PO DAILY 30 ea 3RF Coding Level of Care Code New Pt Level 4 (99263) Diagnoses Mixed dementia G30.9; F01.50; F02.80
[2023-11-27 14:12] VITALS: BP 96/72; PULSE 87; RESP 17; O2SAT 98; BMI 19.3
== END 2023-11-27 14:59 | disposition home or self-care (01) ==
LOC: HO.HSMS 14:08
PROVIDERS: PCP Internal Medicine; Visit Provider Psychiatry & Neurology Neurology
DX: G30.9 Alzheimer's disease, unspecified (principal); F01.50 Vascular dementia, unspecified severity, without behavioral disturbance, psychotic disturbance, mood disturbance, and anxiety; F02.80 Dementia in other diseases classified elsewhere, unspecified severity, without behavioral disturbance, psychotic disturbance, mood disturbance, and anxiety
CPT/HCPCS: 99204; 99214

== ENCOUNTER → 2023-11-27 14:08 | Outpatient (BNVA) | payer MEDICARE, SELFPAY | PROVIDERS: PCP Internal Medicine; Visit Provider Psychiatry & Neurology Neurology | DX: G30.9 Alzheimer's disease, unspecified (principal); F01.50 Vascular dementia, unspecified severity, without behavioral disturbance, psychotic disturbance, mood disturbance, and anxiety; F02.80 Dementia in other diseases classified elsewhere, unspecified severity, without behavioral disturbance, psychotic disturbance, mood disturbance, and anxiety; F43.10 Post-traumatic stress disorder, unspecified; F20.0 Paranoid schizophrenia; G25.89 Other specified extrapyramidal and movement disorders | CPT/HCPCS: 99202 ==

== ENCOUNTER 2023-12-01 15:32 | Outpatient (AMB) | payer MEDICARE, SELFPAY ==
[2023-12-01 15:36] VITALS: BP 122/68; PULSE 78; O2SAT 100; BMI 18.9
--- NOTE | 2023-12-01 15:36 | A.OFFPC_ITS ---
Vital Signs 12/01/23 15:36 Height 5 ft 4 in Weight 110 lb BMI 18.9 BP 122/68 Blood Pressure Location Lt brachial Position Sitting Pulse 78 Pulse Source Pulse Oximeter Pulse Oximetry (%) 100 Oxygen Delivery Method Room Air Intake Visit Reasons: DM - see comment Sagger Soak Required: No Allergies No Known Allergies [No Known Allergies*] Allergy (Verified 12/01/23 15:36) Tobacco use date assessed: 12/01/23 Fall risk assessment: No Falls in past year Last assessed Fall Risk: 12/01/23 HPI DM - see comment HPI Details 73-year-old female with paranoid schizop hrenia, PTSD controlled diabetes mellitus hypertension GERD hypercholesterolemia history of pulmonary embolism chronic idiopathic constipation and recurrent major depression last seen in August 2023. Patient's colonoscopy is due this year mammogram is up-to-date bone density is due. Review of the notes has seen Neurology evaluation for memory issues 1995 overdose on Stelazine, 2013 mother diagnosis of mixed dementia advised MRI advised for speech and cognitive therapy Namenda XR 7 mg once a day PFSH Medical History (Updated 11/27/23 @ 14:51 by Gianna Franco MD) Mixed dementia History of pulmonary embolism Hypertension Hypertriglyceridemia Anemia Vitamin B12 deficiency GERD (gastroesophageal reflux disease) Paranoid schizophrenia Depression Type 2 diabetes mellitus with hyperglycemia Surgical History History of esophagogastroduodenoscopy (EGD) Hx of colonoscopy Family History Mother Diabetes Social History Household Members: Spouse Housing: House Are you a primary director of medicare to a significant other at home: No Do you presently have visiting nurse or other home services: No Alcohol intake: never Patient Tobacco Use Status: Never used Tobacco e-Cigarette/Vaping Use: Never Used Second Hand Smoke Exposure: No service: No Current occupational status: retired Cognitive needs: No Hearing needs: No Vision needs: Yes (glasses) Questionnaire Thrive Questionnaire Date Thrive assessed: 12/01/23 I am a: Patient What is your living situation today?: I have a steady place to live Within the past 12 months, did the food you bought not last and you didn't have the money to get more?: Never true Within the past 12 months, did you worry whether your food would run out before you got money to buy more?: Never true Do you have trouble paying for medicines?: No Do you have trouble getting transportation to medical appointments?: No Do you have trouble paying your heating and electricity bill?: No Do you have trouble taking care of your child, family member or friend?: No Do you have trouble with day-to-day activities such as bathing, preparing meals, shopping, managing finances, etc.?: No Are you currently unemployed and looking for a job?: No Are you interested in more education?: No Please select the resources that you would like help with: None THRIVE Score: 0 AUDIT C Alcohol Use Questionnaire (AUDIT-C) 1. How often do you have a drink containing alcohol?: Never (0) 2. How many drinks containing alcohol do you have on a typical day when you are drinking?: 1 or 2 (0) 3. How often do you have six or more drinks on one occasion?: Never (0) Total Score: 0 SHERIF-7 AMB Questionnaire SHERIF-7 Date SHERIF - 7 assessed: 12/01/23 Source: Developed by Drs. Berlin Dubois, Lakshmi Bob, Pratik Kelly and colleagues, with an educational catalina from [employer]. Physical exam (Primary Care) Vital Signs: Last Vital Signs Pulse 78 12/01/23 15:36 BP 122/68 12/01/23 15:36 Pulse Ox 100 12/01/23 15:36 Oxygen Delivery Method Room Air 12/01/23 15:36 BMI result Body Mass Index 18.9 Tobacco/Smoking Status: Tobacco use Status Tobacco use date assessed 12/01/23 12/01/23 15:43 Patient Tobacco Use Status Never used Tobacco 12/01/23 15:43 e-Cigarette/Vaping Use Never Used 12/01/23 15:43 Thrive Assessment: Date of Thrive Assessment Date Thrive assessed 12/01/23 12/01/23 15:43 Const General: alert; No acute distress Eyes Conjunctivae: conjunctivae normal Resp Auscultation: clear to auscultation bilaterally Cardio Rate: regular rate Rhythm: regular rhythm GI Inspection: Yes normal to inspection Extrem General: Yes normal to inspection and No edema Results AMB Hemoglobin A1c AMB Hemoglobin A1c 6.3 % Last Edit by STEPHANIE Tellez on 12/01/23 15:47 Assessment and Plan Assessment & Plan (1) Type 2 diabetes mellitus with hyperglycemia: Comment: Dr. Lema Code(s): E11.65 - Type 2 diabetes mellitus with hyperglycemia Qualifiers: Diabetes mellitus long term care social worker insulin use: without long term care social worker use Qualified Code(s): E11.65 - Type 2 diabetes mellitus with hyperglycemia Plan: Decrease the amount of carbohydrate intake, pasta, bread, rice and potatoes are all sugar and that is aside from all the sweet stuff, remember that fruits are good but they are Sweet also. Hemoglobin A1c goal of less than 7.0 patient diet controlled (2) Hypertension: Code(s): I10 - Essential (primary) hypertension Qualifiers: Hypertension type: essential hypertension Qualified Code(s): I10 - Essential (primary) hypertension Plan: Continue with blood pressure medication. Decrease salt intake and exercise continue with lisinopril 5 mg once a day (3) GERD (gastroesophageal reflux disease): Code(s): K21.9 - Gastro-esophageal reflux disease without esophagitis Qualifiers: Esophagitis presence: without esophagitis Qualified Code(s): K21.9 - Gastro-esophageal reflux disease without esophagitis Plan: Avoid the foods that causes that usually spicy foods, tomato products, juices, coffee, soda and foods that your sensitive to. After eating do not lie down, allow 3-4 hours before in lie down. And keep the head of bed above 30 degrees to avoid the acid from going up. (4) Hypercholesterolemia: Code(s): E78.00 - Pure hypercholesterolemia, unspecified Plan: Avoid fried foods, chicken skin, eggs, butter margarine, pastries and meat. Be it pork or beef they have a lot of cholesterol LDL goal of less than 100 and triglyceride of less than 150. Patient on simvastatin 5 mg once a day (5) Recurrent major depression: Comment: Dr. Croft (07/2020) every 3 weeks CHD Code(s): F33.9 - Major depressive disorder, recurrent, unspecified Plan: Continue with present medication and psychiatric care (6) Mixed dementia: Comment: worsened by schizophrenia , medications, PTSD etc. Code(s): G30.9 - Alzheimer's disease, unspecified; F01.50 - Vascular dementia, unspecified severity, without behavioral disturbance, psychotic disturbance, mood disturbance, and anxiety; F02.80 - Dementia in other diseases classified elsewhere, unspecified severity, without behavioral disturbance, psychotic disturbance, mood disturbance, and anxiety Plan: Patient has seen Neurology and workup pending(MRI) started on Namenda XR 7 mg once a day. Orders: Orders AMB Hemoglobin A1c Today E11.65 - Type 2 diabetes mellitus with hyperglycemia Medications: Refilled simvastatin 5 mg PO QPM 100 tabs 2RF E78.00 - Pure hypercholesterolemia, unspecified Coding Level of Care Code Est Pt Level 4 (37067) Diagnoses Type 2 diabetes mellitus with hyperglycemia, without long-term current use of insulin E11.65 Diabetes mellitus penitentiary insulin use: without long term care social worker use Essential hypertension I10 Hypertension type: essential hypertension Gastroesophageal reflux disease without esophagitis K21.9 Esophagitis presence: without esophagitis Hypercholesterolemia E78.00 Recurrent major depression F33.9 Mixed dementia G30.9; F01.50; F02.80
== END 2023-12-01 15:58 | disposition home or self-care (01) ==
PROVIDERS: PCP Internal Medicine; Visit Provider Internal Medicine
DX: E11.65 Type 2 diabetes mellitus with hyperglycemia (principal); F33.9 Major depressive disorder, recurrent, unspecified; G30.9 Alzheimer's disease, unspecified; F01.50 Vascular dementia, unspecified severity, without behavioral disturbance, psychotic disturbance, mood disturbance, and anxiety; F02.80 Dementia in other diseases classified elsewhere, unspecified severity, without behavioral disturbance, psychotic disturbance, mood disturbance, and anxiety; I10 Essential (primary) hypertension; K21.9 Gastro-esophageal reflux disease without esophagitis; E78.00 Pure hypercholesterolemia, unspecified
CPT/HCPCS: 83036; 99214

== ENCOUNTER 2023-12-25 15:51 | Outpatient (REF) | payer MEDICARE, SELFPAY ==
--- NOTE | ~2023-12-25 | MR_ITS ---
EXAMINATION: MR BRAIN WITHOUT CONTRAST CLINICAL INFORMATION: Alzheimer's disease, memory loss, hippocampal analysis COMPARISON: MR brain 03/09/2015 TECHNIQUE: MRI of the brain was obtained using routine sequences without contrast. Additional high-resolution anatomic imaging was performed through the brain and images were submitted for post processing including auto-segmentation and volumetric analysis. FINDINGS: The diffusion weighted sequence is technically degraded. No definite diffusion restriction within this constraint. Susceptibility weighted sequence is within normal limits. No mass effect, extra-axial collection, midline shift, or other herniation. Generalized cerebral volume loss with associated ventricular and sulcal prominence. Periventricular and subcortical T2/FLAIR hyperintense foci are nonspecific but likely represent chronic microvascular ischemic change. Intracranial flow voids are preserved. Hippocampal volume appears according to the generalized degree of volume loss. Trace ethmoid air cell mucosal thickening. The mastoid air cells are well-aerated. No focal expansile or destructive osseous lesion. Baseline NeuroQuant morphometric assessment of the brain was performed. Hippocampal volumes have an age-adjusted normative percentile of 93. The superior lateral ventricles have a normative percentile of 80. The inferior lateral ventricles have a normative percentile of 85. MR/MR brain wo con w neuroquant IMPRESSION: Generalized cerebral volume loss with moderate chronic microvascular ischemic change. Hippocampal volume appears concordant to the generalized degree of volume loss.
== END 2023-12-25 15:52 | disposition home or self-care (01) ==
LOC: HO.MRI 15:51
PROVIDERS: PCP Internal Medicine; Visit Provider Psychiatry & Neurology Neurology
DX: G30.9 Alzheimer's disease, unspecified (principal); F01.50 Vascular dementia, unspecified severity, without behavioral disturbance, psychotic disturbance, mood disturbance, and anxiety; F02.80 Dementia in other diseases classified elsewhere, unspecified severity, without behavioral disturbance, psychotic disturbance, mood disturbance, and anxiety
CPT/HCPCS: 70551; 76377

== ENCOUNTER 2024-02-26 12:23 | Outpatient (AMB) | payer MEDICARE, SELFPAY ==
[2024-02-26 12:28] VITALS: BP 117/58; PULSE 91; BMI 19.0
--- NOTE | 2024-02-26 12:28 | A.OFFVIS_ITS ---
Vital Signs 02/26/24 12:28 Height 5 ft 4 in Weight 110 lb 10.753 oz BMI 19.0 BP 117/58 L Blood Pressure Location Lt brachial Position Sitting Pulse 91 Intake Visit Reasons: 6 mnth follow up Allergies No Known Allergies [No Known Allergies*] Allergy (Verified 02/26/24 12:36) HPI HPI 6 mnth follow up: Details: Assessment & Plan (1) Chronic idiopathic constipation: Code(s): K59.04 - Chronic idiopathic constipation (2) GERD (gastroesophageal reflux disease): Code(s): K21.9 - Gastro-esophageal reflux disease without esophagitis Qualifiers: Esophagitis presence: without esophagitis Qualified Code(s): K21.9 - Gastro-esophageal reflux disease without esophagitis Plan Icelandic # translates per patient request She continues to do well on her motegrity and her pantoprazole along with colace. She remains satisfied with her GI regimen! She will be due for colonoscopy screening next year, will discuss this at her next appt. ROV 6 mos. Medications: Refilled pantoprazole 40 mg PO DAILY 100 tabs 3RF K21.9 - Gastro-esophageal reflux disease without esophagitis docusate sodium 100 mg PO TID 90 days 270 caps 3RF K21.9 - Gastro-esophageal reflux disease without esophagitis Laboratory Tests 11/24/23 12/01/23 08:35 14:55 WBC 6.4 RBC 3.96 L Hgb 11.2 L Hct 33.2 L MCV 83.8 MCH 28.3 Plt Count 293 Estimated GFR > 60 Hgb A1c (Clinic) 6.3 H Total Bilirubin 0.3 AST 25 ALT 18 Alkaline Phosphatase 45 TSH 1.04 TODAY'S VISIT Icelandic # translates per patient request They have been paying $300 a month for the motegrity and they would like to try to go back to [employer]. They feels that she may have been having memory problems and this drug may have been working, but she forgot is she would have BM. They opt for Cologuard instead of colonoscopy afte rwatching video. ROV 8 weeks. [facility] Medical History Mixed dementia History of pulmonary embolism Hypertension Hypertriglyceridemia Anemia Vitamin B12 deficiency GERD (gastroesophageal reflux disease) Paranoid schizophrenia Depression Type 2 diabetes mellitus with hyperglycemia Surgical History History of esophagogastroduodenoscopy (EGD) Hx of colonoscopy Family History Mother Diabetes Social History Household Members: Spouse Housing: House Are you a primary resident care aide to a significant other at home: No Do you presently have visiting nurse or other home services: No Alcohol intake: never Patient Tobacco Use Status: Never used Tobacco e-Cigarette/Vaping Use: Never Used Second Hand Smoke Exposure: No service: No Current occupational status: retired Cognitive needs: No Hearing needs: No Vision needs: Yes (glasses) Review of Systems Const Denies fatigue, Denies fever(s), Denies night sweats, Denies poor appetite and Denies weight loss Eyes Details: glasses Reports requires corrective lenses ENT Reports Normal hearing present, Denies dental pain, Denies dysphagia, Denies hearing loss, Denies mouth pain, Denies odynophagia, Denies throat swelling, Denies tongue swelling and Reports other (Dentition adequate) Card Reports no additional complaints Resp Reports no additional complaints GI Details: Denies abdominal pain, Denies melena, Reports bloating, Denies hematochezia, Reports constipation, Denies GI cramping, Denies dysphagia, Denies excessive flatus, Denies early satiety, Denies heartburn, Denies diarrhea, Denies nausea, Denies odynophagia, Denies vomiting and Denies hematemesis Skin/Breast Denies pruritus, Denies lesions, Denies rash and Denies jaundice Neuro Reports Normal hearing present, Denies Abnormal speech present and Reports memory loss Psych Reports memory loss Endo Denies fatigue Aller/Immun Denies throat swelling and Denies tongue swelling Physical Exam Vital Signs: Last Vital Signs Pulse 91 02/26/24 12:28 BP 117/58 L 02/26/24 12:28 BMI result Body Mass Index 19.0 Const General: cooperative, no acute distress, well developed and well groomed Nutritional Appearance: average body habitus and well nourished Orientation/consciousness: oriented to person, oriented to place and oriented to time Limitations: No language barrier and other limitations HEENT Head: Yes normocephalic and Yes atraumatic Eyes General: appearance normal, both eyes and all related structures Pupils: Equal, round and reactive pupils present Neck Neck: Yes normal visual inspection and Yes no lymphadenopathy Thyroid: Thyroid normal Resp Effort & Inspection: normal respiratory effort and able to speak in complete sentences Auscultation: clear to auscultation bilaterally Cardio Rate: regular rate Rhythm: regular rhythm Heart sounds: Normal, physiologic split S2 sound present Peripheral pulses: radial pulses present and posterior tibial pulses present GI Inspection: No distended and No Abdominal panniculus present Palpation (GI): Soft to palpation, nontender, no guarding, not rigid and No hepatosplenomegaly present Percussion: Yes normal to percussion Auscultation: normal bowel sounds Rectal Exam - Female: deferred Skin General skin exam: no rashes or lesions noted, turgor normal, skin not dry, no jaundice, No spider nevi and no striae Rashes: no rashes Nails: normal Neuro General: oriented to person, oriented to place and oriented to time Cranial nerves: Yes Equal, round and reactive pupils present and Yes Normal hearing present Speech: No Abnormal speech present Extrem General: Yes normal to inspection, No clubbing, No cyanosis and No edema Psych Appearance: grossly normal and well kempt Mental Status: mental status grossly normal Speech and movement: Normal speech and movement present Affect: normal affect Attitude: cooperative Thought process: Normal thought process present and not confabulating Thought content: Normal thought content present Insight: Poor insight present (Psych) Judgement: Poor judgement present (Psych) Assessment & Plan Assessment & Plan (1) Chronic idiopathic constipation: Code(s): K59.04 - Chronic idiopathic constipation Category: Medical (2) GERD (gastroesophageal reflux disease): Code(s): K21.9 - Gastro-esophageal reflux disease without esophagitis Category: Medical Qualifiers: Esophagitis presence: without esophagitis Qualified Code(s): K21.9 - Gastro-esophageal reflux disease without esophagitis (3) Pre-op examination: Code(s): Z01.818 - Encounter for other preprocedural examination Category: Medical Plan Icelandic # translates per patient request They have been paying $300 a month for the motegrity and they would like to try to go back to [employer]. They feels that she may have been having memory problems and this drug may have been working, but she forgot is she would have BM. They opt for Cologuard instead of colonoscopy afte rwatching video. ROV 8 weeks. Medications: New linaclotide ([employer]) 290 mcg PO QAM 30 caps 6RF 30 days K59.04 - Chronic idiopathic constipation linaclotide ([employer]) 290 mcg PO QAM 30 days 30 caps 6RF K59.04 - Chronic idiopathic constipation On Hold prucalopride (Motegrity) Hold Comment: Doctor's Order 2 mg PO DAILY 90 tabs 3RF K59.04 - Chronic idiopathic constipation Coding Level of Care Code Est Pt Level 3 (85342) Diagnoses Chronic idiopathic constipation K59.04 Gastroesophageal reflux disease without esophagitis K21.9 Esophagitis presence: without esophagitis Pre-op examination Z01.818
--- NOTE | 2024-02-26 12:28 | A.OFFVIS_ITS ---
Vital Signs 02/26/24 12:28 Height 5 ft 4 in Weight 110 lb 10.753 oz BMI 19.0 BP 117/58 L Blood Pressure Location Lt brachial Position Sitting Pulse 91 Intake Visit Reasons: 6 mnth follow up Intake Note: Evita returns today in 6 months follow up of [facility]. CC: Patient denies having any GI concerns and states she is doing good. Prototype Fabricator Required: No Allergies No Known Allergies [No Known Allergies*] Allergy (Verified 02/26/24 12:36) PFSH Medical History Mixed dementia History of pulmonary embolism Hypertension Hypertriglyceridemia Anemia Vitamin B12 deficiency GERD (gastroesophageal reflux disease) Paranoid schizophrenia Depression Type 2 diabetes mellitus with hyperglycemia Surgical History History of esophagogastroduodenoscopy (EGD) Hx of colonoscopy Family History Mother Diabetes Social History Household Members: Spouse Housing: House Are you a primary critical care nurse to a significant other at home: No Do you presently have visiting nurse or other home services: No Alcohol intake: never Patient Tobacco Use Status: Never used Tobacco e-Cigarette/Vaping Use: Never Used Second Hand Smoke Exposure: No service: No Current occupational status: retired Cognitive needs: No Hearing needs: No Vision needs: Yes (glasses) Physical Exam Vital Signs: Last Vital Signs Pulse 91 02/26/24 12:28 BP 117/58 L 02/26/24 12:28 BMI result Body Mass Index 19.0 Coding
== END 2024-02-26 13:28 | disposition home or self-care (01) ==
PROVIDERS: PCP Internal Medicine; Visit Provider Nurse Practitioner
DX: K59.04 Chronic idiopathic constipation (principal); K21.9 Gastro-esophageal reflux disease without esophagitis; Z01.818 Encounter for other preprocedural examination
CPT/HCPCS: 99213

== ENCOUNTER → 2024-02-26 12:23 | Outpatient (BNVA) | payer MEDICARE, SELFPAY | PROVIDERS: PCP Internal Medicine; Visit Provider Nurse Practitioner | DX: Z01.818 Encounter for other preprocedural examination (principal); K59.04 Chronic idiopathic constipation; K21.9 Gastro-esophageal reflux disease without esophagitis | CPT/HCPCS: 99212 ==

== ENCOUNTER 2024-03-19 13:23 | Outpatient (AMB) | payer MEDICARE, SELFPAY ==
[2024-03-19 13:36] VITALS: BP 102/56; PULSE 103; O2SAT 98; BMI 23.1
--- NOTE | 2024-03-19 13:36 | A.OFFPC_ITS ---
Vital Signs 03/19/24 13:36 Height 4 ft 9.24 in Weight 107 lb 8 oz BMI 23.1 BP 102/56 L Blood Pressure Location Lt brachial Position Sitting Pulse 103 H Pulse Source Pulse Oximeter Pulse Oximetry (%) 98 Oxygen Delivery Method Room Air Intake Visit Reasons: Annual Physical Intake Note: Patient is here today for a physical. Juke Box Servicer Required: No Accompanied by: Spouse Allergies No Known Allergies [No Known Allergies*] Allergy (Verified 03/19/24 13:41) Medication List - Last Reconciled 03/19/24 by Poly Burnett MD ascorbate calcium (vitamin C) 500 mg PO DAILY aspirin (Adult Aspirin Regimen) 81 mg PO DAILY benztropine 0.5 mg PO BID docusate sodium 100 mg PO TID fluoxetine (Prozac) 40 mg PO DAILY linaclotide (Linzess) 290 mcg PO QAM 30 days lorazepam (Ativan) 1 mg PO TID PRN memantine 14 mg PO DAILY mirtazapine 15 mg PO BEDTIME mometasone 0.1% 1 appl topical DAILY multivitamin 1 cap PO DAILY olanzapine 15 mg PO BEDTIME olanzapine 5 mg PO BID PRN omega 4-ixm-gwm-fish oil 1,200 (144-216) mg (Fish Oil) 1 cap PO DAILY pantoprazole 40 mg PO DAILY simvastatin 5 mg PO QPM Tobacco use date assessed: 12/01/23 Fall risk assessment: No Falls in past year Last assessed Fall Risk: 03/19/24 Dental Screening Dental Screen Date: 03/19/24 Did you have a dental visit in the last 12 months?: Yes Did you have a dental problem in the last 6 months where you did not have access to dental care?: No Was dental information given to patient?: Patient has dentist HPI Annual Physical HPI Details 73-year-old female with a history of con trolled diabetes mellitus hypertension GERD hypercholesterolemia, dementia and recurrent major depression. Patient comes in for physical exam. Last seen in November 2023. Patient's co lonoscopy last done in March 2014 do this year. Mammogram is up-to-date bone density is due. Review of the notes has followed up with Hematology-Oncology for the history of pulmonary embolism 2010 on aspirin. MRI done 12/2023Generalized cerebral volume loss with moderate chronic microvascular ischemic change. Hippocampal volume appears concordant to the generalized degree of volume loss. woke up sob PFSH Medical History Mixed dementia History of pulmonary embolism Hypertension Hypertriglyceridemia Anemia Vitamin B12 deficiency GERD (gastroesophageal reflux disease) Paranoid schizophrenia Depression Type 2 diabetes mellitus with hyperglycemia Surgical History History of esophagogastroduodenoscopy (EGD) Hx of colonoscopy Family History Mother Diabetes Social History Household Members: Spouse Housing: House Are you a primary director of medicare to a significant other at home: No Do you presently have visiting nurse or other home services: No Alcohol intake: never Patient Tobacco Use Status: Never used Tobacco e-Cigarette/Vaping Use: Never Used Second Hand Smoke Exposure: No service: No Current occupational status: retired Cognitive needs: No Hearing needs: No Vision needs: Yes (glasses) Questionnaire PHQ-9 Over the last 2 weeks, how often have you been bothered by any of the following problems? 1. Little interest or pleasure in doing things: several days 2. Feeling down, depressed, or hopeless: several days 3. Trouble falling or staying asleep, or sleeping too much: not at all 4. Feeling tired or having little energy: several days 5. Poor appetite or overeating: not at all 6. Feeling bad about yourself - or that you are a failure or have let yourself or your family down: several days 7. Trouble concentrating on things, such as reading the newspaper or watching television: nearly every day 8. Moving or speaking so slowly that other people could have noticed. Or the opposite - being so fidgety or restless that you have been moving around a lot more than usual: several days 9. Thoughts that you would be better off or of hurting yourself in some way: not at all Total score: 8 [id number] - PHQ-9 Billing: Yes Source: Developed by Drs. Berlin Dubois, Lakshmi Bob, Pratik Kelly and colleagues, with an educational catalina from [employer]. Thrive Questionnaire Date Thrive assessed: 12/01/23 SHERIF-7 AMB Questionnaire SHERIF-7 Date SHERIF - 7 assessed: 12/01/23 Source: Developed by Drs. Berlin Dubois, Lakshmi Bob, rPatik Kelly and colleagues, with an educational catalina from [employer]. Review of Systems Const Denies poor appetite and Denies weakness Eyes Denies no additional complaints ENT Reports Normal hearing present, Denies dizziness, Denies nasal congestion, Denies tinnitus and Denies sore throat Card Denies chest pain, Denies syncope, Denies rapid heart rate and Denies dyspnea Resp Denies cough and Denies dyspnea GI Denies change in stool character, Reports constipation, Denies diarrhea, Denies nausea and Denies vomiting Denies urinary frequency, Denies difficulty voiding and Denies dysuria Neuro Reports Normal hearing present, Denies confusion, Denies dizziness, Denies syncope and Denies weakness Psych Denies confusion Physical exam (Primary Care) Vital Signs: Last Vital Signs Pulse 103 H 03/19/24 13:36 BP 102/56 L 03/19/24 13:36 Pulse Ox 98 03/19/24 13:36 Oxygen Delivery Method Room Air 03/19/24 13:36 BMI result Body Mass Index 23.1 Tobacco/Smoking Status: Tobacco use Status Tobacco use date assessed 12/01/23 03/19/24 13:45 Patient Tobacco Use Status Never used Tobacco 03/19/24 13:45 e-Cigarette/Vaping Use Never Used 03/19/24 13:45 PHQ-9: PHQ-9 Score PHQ-9: Total score 8 03/19/24 13:52 Thrive Assessment: Date of Thrive Assessment Date Thrive assessed 12/01/23 03/19/24 13:45 Const General: No confusion Orientation/consciousness: No confusion HENMT Head: Yes normocephalic Ears: external ears normal and TM's normal bilaterally Face and sinus: Yes normal facial exam Mouth: moist mucous membranes Throat: Yes tonsils normal Eyes Conjunctivae: conjunctivae normal Pupils: Equal, round and reactive pupils present and Pupil accommodation reflex normal Direct Ophthalmoscopy: normal light reflex Neck Neck: No lymphadenopathy Thyroid: Thyroid normal Chest Chest palpation & inspection: normal inspection of the chest Resp Effort & Inspection: normal respiratory effort and no audible wheezes Auscultation: clear to auscultation bilaterally, no crackles, no wheezes and lung sounds not diminished Cardio Rate: regular rate Rhythm: regular rhythm Peripheral pulses: radial pulses present and dorsalis pedis present GI Palpation (GI): no masses Auscultation: normal bowel sounds and normoactive bowel sounds Rectal Exam - Female: deferred Skin General skin exam: no rashes or lesions noted Rashes: no rashes Neuro General: No confusion Cranial nerves: Yes Equal, round and reactive pupils present and Yes Normal hearing present Cognition (Neuro): normal cognition Gait exam (Neuro): Normal gait present Motor exam (neuro): 5/5 motor strength present throughout Deep tendon reflexes (DTR's): Right brachioradialis reflex intensity grade: 2+, Left brachioradialis reflex intensity grade: 2+, Right patellar reflex intensity grade: 2+ and Left patellar reflex intensity grade: 2+ Extrem General: No edema Results AMB Hemoglobin A1c AMB Hemoglobin A1c 5.7 % Last Edit by KRISTEN Badillo on 03/19/24 13:47 Results Reviewed Results Reviewed: Laboratory Last Values Hgb A1c (Clinic) 5.7 % (4.0-6.0) 03/19/24 13:28 Assessment and Plan Assessment & Plan (1) Annual physical exam: Code(s): Z00.00 - Encounter for general adult medical examination without abnormal findings Plan: Patient is advised to eat healthy, keep well hydrated, keep active and have adequate sleep. (2) Type 2 diabetes mellitus with hyperglycemia: Comment: Dr. Lema Code(s): E11.65 - Type 2 diabetes mellitus with hyperglycemia Qualifiers: Diabetes mellitus exterminator helper termite insulin use: without exterminator helper termite use Qualified Code(s): E11.65 - Type 2 diabetes mellitus with hyperglycemia Plan: Decrease the amount of carbohydrate intake, pasta, bread, rice and potatoes are all sugar and that is aside from all the sweet stuff, remember that fruits are good but they are Sweet also. Diet controlled (3) GERD (gastroesophageal reflux disease): Code(s): K21.9 - Gastro-esophageal reflux disease without esophagitis Qualifiers: Esophagitis presence: without esophagitis Qualified Code(s): K21.9 - Gastro-esophageal reflux disease without esophagitis Plan: Avoid the foods that causes that usually spicy foods, tomato products, juices, coffee, soda and foods that your sensitive to. After eating do not lie down, allow 3-4 hours before in lie down. And keep the head of bed above 30 degrees to avoid the acid from going up. (4) Hypertension: Code(s): I10 - Essential (primary) hypertension Qualifiers: Hypertension type: essential hypertension Qualified Code(s): I10 - Essential (primary) hypertension Plan: Continue with blood pressure medication. Decrease salt intake and exercise patient is taking lisinopril 5 mg once a day (5) Anemia: Code(s): D64.9 - Anemia, unspecified Plan: Chronic and stable (6) Hypercholesterolemia: Code(s): E78.00 - Pure hypercholesterolemia, unspecified Plan: Avoid fried foods, chicken skin, eggs, butter margarine, pastries and meat. Be it pork or beef they have a lot of cholesterol LDL goal of less than 100 and triglyceride of less than 150 11/2023 blood work simvastatin 5 mg at bedtime (7) Recurrent major depression: Comment: Dr. Croft (07/2020) every 3 weeks CHD Code(s): F33.9 - Major depressive disorder, recurrent, unspecified Plan: Continue with counseling and therapy (8) Mixed dementia: Comment: worsened by schizophrenia , medications, PTSD etc. Code(s): G30.9 - Alzheimer's disease, unspecified; F01.50 - Vascular dementia, unspecified severity, without behavioral disturbance, psychotic disturbance, mood disturbance, and anxiety; F02.80 - Dementia in other diseases classified elsewhere, unspecified severity, without behavioral disturbance, psychotic disturbance, mood disturbance, and anxiety Plan: Supportive management Orders: Orders XR DEXA axial skeleton Today M81.0 - Age-related osteoporosis without current pathological fracture, M85.80 - Other specified disorders of bone density and structure, unspecified site AMB Hemoglobin A1c Today E11.65 - Type 2 diabetes mellitus with hyperglycemia Coding Level of Care Code Est Pt Prev Care >65y(08841) Diagnoses Annual physical exam Z00.00 Type 2 diabetes mellitus with hyperglycemia, without long-term current use of insulin E11.65 Diabetes mellitus exterminator helper termite insulin use: without [facility] use Gastroesophageal reflux disease without esophagitis K21.9 Esophagitis presence: without esophagitis Essential hypertension I10 Hypertension type: essential hypertension Anemia D64.9 Hypercholesterolemia E78.00 Recurrent major depression F33.9 Mixed dementia G30.9; F01.50; F02.80
== END 2024-03-19 14:09 | disposition home or self-care (01) ==
PROVIDERS: PCP Internal Medicine; Visit Provider Internal Medicine
DX: Z00.00 Encounter for general adult medical examination without abnormal findings (principal); E11.65 Type 2 diabetes mellitus with hyperglycemia; F33.9 Major depressive disorder, recurrent, unspecified; G30.9 Alzheimer's disease, unspecified; F02.80 Dementia in other diseases classified elsewhere, unspecified severity, without behavioral disturbance, psychotic disturbance, mood disturbance, and anxiety; F01.50 Vascular dementia, unspecified severity, without behavioral disturbance, psychotic disturbance, mood disturbance, and anxiety; K21.9 Gastro-esophageal reflux disease without esophagitis; I10 Essential (primary) hypertension; D64.9 Anemia, unspecified; E78.00 Pure hypercholesterolemia, unspecified
CPT/HCPCS: 83036; 99397

== ENCOUNTER 2024-04-06 14:24 | Outpatient (AMB) | payer MEDICARE, SELFPAY ==
--- NOTE | 2024-04-06 14:33 | MHC.OFFVIS ---
Vital Signs 04/06/24 14:34 Height 4 ft 9 in Weight 110 lb BMI 23.8 BP 124/62 Blood Pressure Location Rt brachial Position Sitting Respiration 16 Pulse 88 Pulse Source Pulse Oximeter Pulse Oximetry (%) 99 Oxygen Delivery Method Room Air Intake Visit Reasons: 4 month F/U - Confirmed Intake Note: Pt presents for 4 month follow up for dementia. Here to discuss results of Neuroquant. Density Control Puncher Required: No Allergies No Known Allergies [No Known Allergies*] Allergy (Verified 04/06/24 14:34) Medication List - Last Reconciled 04/06/24 by Gianna Franco MD ascorbate calcium (vitamin C) 500 mg PO DAILY aspirin (Adult Aspirin Regimen) 81 mg PO DAILY benztropine 0.5 mg PO BID docusate sodium 100 mg PO TID fluoxetine (Prozac) 40 mg PO DAILY linaclotide (Linzess) 290 mcg PO QAM 30 days lorazepam (Ativan) 1 mg PO TID PRN memantine 14 mg PO DAILY mirtazapine 15 mg PO BEDTIME mometasone 0.1% 1 appl topical DAILY multivitamin 1 cap PO DAILY olanzapine 15 mg PO BEDTIME olanzapine 5 mg PO BID PRN omega 5-wem-vev-fish oil 1,200 (144-216) mg (Fish Oil) 1 cap PO DAILY pantoprazole 40 mg PO DAILY simvastatin 5 mg PO QPM HPI Comments Details: 73y/o female with paranoid Schizophrenia, PTSD comes for follow up of dementia. she is on 14mg namenda . she is accompanied by her who helps with her history. In 1995 she overdosed on stellazine .In 2013 her mother and her psychiatric illness worsened and she was hospitalized. she has been having memory issues since then It has progressed since then . Her memory issues are mostly short term but also has some problems recalling group home events.. she frequently loses things, misplaces things, repeats herself, forgets conversations, confused with her own family members does not remember her grand nieces. she has trouble using her remote. she does not cook, or drive . her supervises while she is dressing and showering.she can sheela the phone but calls only her sister. No h/o head injury . [facility] Medical History Mixed dementia History of pulmonary embolism Hypertension Hypertriglyceridemia Anemia Vitamin B12 deficiency GERD (gastroesophageal reflux disease) Paranoid schizophrenia Depression Type 2 diabetes mellitus with hyperglycemia Surgical History History of esophagogastroduodenoscopy (EGD) Hx of colonoscopy Family History Mother Diabetes Social History Household Members: Spouse Housing: House Are you a primary complex care nurse to a significant other at home: No Do you presently have visiting nurse or other home services: No Alcohol intake: never Patient Tobacco Use Status: Never used Tobacco e-Cigarette/Vaping Use: Never Used Second Hand Smoke Exposure: No service: No Current occupational status: retired Cognitive needs: No Hearing needs: No Vision needs: Yes (glasses) Review of Systems Neuro Reports confusion Psych Reports confusion Physical Exam Vital Signs: Last Vital Signs Pulse 88 04/06/24 14:34 Resp 16 04/06/24 14:34 BP 124/62 04/06/24 14:34 Pulse Ox 99 04/06/24 14:34 Oxygen Delivery Method Room Air 04/06/24 14:34 BMI result Body Mass Index 23.8 Const Other: she has involuntary truncal movements General: cooperative, comfortable, no acute distress and confusion Nutritional Appearance: average body habitus Orientation/consciousness: confusion Eyes Pupils: Equal, round and reactive pupils present Neuro General: gait normal, tone normal, moves all extremities, no focal motor deficits and confusion Cranial nerves: Yes Facial sensation intact/muscles of mastication intact, Yes Equal, round and reactive pupils present, Yes Bilaterally intact EOM present, Yes Nystagmus not present and Yes Normal facial strength present Cognition (Neuro): abnormal cognition Gait exam (Neuro): Normal gait present Motor exam (neuro): 5/5 motor strength present throughout and Normal motor muscle tone present throughout Deep tendon reflexes (DTR's): Right triceps reflex intensity grade: 2+, Left triceps reflex intensity grade: 2+, Rt Biceps (C5, C6): 2+, Left biceps reflex intensity grade: 2+, Right brachioradialis reflex intensity grade: 2+, Left brachioradialis reflex intensity grade: 2+, Right patellar reflex intensity grade: 2+ and Left patellar reflex intensity grade: 2+ Coordination: [id number] test normal Assessment & Plan Assessment & Plan (1) Mixed dementia: Comment: worsened by schizophrenia , medications, PTSD etc. Code(s): G30.9 - Alzheimer's disease, unspecified; F01.50 - Vascular dementia, unspecified severity, without behavioral disturbance, psychotic disturbance, mood disturbance, and anxiety; F02.80 - Dementia in other diseases classified elsewhere, unspecified severity, without behavioral disturbance, psychotic disturbance, mood disturbance, and anxiety Category: Medical Plan Reviewed her labs MRI Brain - shows volume loss and white matter changes will refer to speech and cognitive therapy. Increase namenda XR 21mg qd X 4 weeks then 28 mg qd Medications: Changed From memantine 14 mg PO DAILY 30 ea 3RF To memantine 21 mg PO DAILY 30 ea 0RF Coding Level of Care Code Est Pt Level 4 (93341) Diagnoses Mixed dementia G30.9; F01.50; F02.80
[2024-04-06 14:34] VITALS: BP 124/62; PULSE 88; RESP 16; O2SAT 99; BMI 23.8
== END 2024-04-06 14:59 | disposition home or self-care (01) ==
PROVIDERS: PCP Internal Medicine; Visit Provider Psychiatry & Neurology Neurology
DX: G30.9 Alzheimer's disease, unspecified (principal); F01.50 Vascular dementia, unspecified severity, without behavioral disturbance, psychotic disturbance, mood disturbance, and anxiety; F02.80 Dementia in other diseases classified elsewhere, unspecified severity, without behavioral disturbance, psychotic disturbance, mood disturbance, and anxiety
CPT/HCPCS: 99214

== ENCOUNTER → 2024-04-06 14:24 | Outpatient (BNVA) | payer MEDICARE, SELFPAY | PROVIDERS: PCP Internal Medicine; Visit Provider Psychiatry & Neurology Neurology | DX: G30.9 Alzheimer's disease, unspecified (principal); F01.50 Vascular dementia, unspecified severity, without behavioral disturbance, psychotic disturbance, mood disturbance, and anxiety; F02.80 Dementia in other diseases classified elsewhere, unspecified severity, without behavioral disturbance, psychotic disturbance, mood disturbance, and anxiety; Z79.899 Other long term (current) drug therapy | CPT/HCPCS: 99212 ==

== ENCOUNTER 2024-04-28 13:22 | Outpatient (REF) | payer MEDICARE, SELFPAY ==
--- NOTE | ~2024-04-28 | MM_ITS ---
EXAMINATION: BONE DENSITOMETRY CLINICAL INDICATION: Age-related osteoporosis without current pathological fracture. COMPARISON: Previous BD dated 12/05/2021 and baseline BD dated 01/15/2008. TECHNIQUE: Using a [employer] DXA System (software version: 13.1) manufactured by [employer], dual-energy x-ray absorptiometry was performed of the lumbar spine and left hip. The images are of good technical quality. Summary results are attached. FINDINGS: LEFT FEMUR, NECK: Current: BMD 0.703 g/cm2, Z-score -0.3, T-score -2.4, osteopenia. Prior: BMD 0.680 g/cm2. Baseline: BMD 0.741 g/cm2. LEFT FEMUR, TOTAL: Current: BMD 0.814 g/cm2, Z-score 0.4, T-score -1.5, osteopenia, 0.4% decrease from previous, 11.5% decrease from baseline (<5% change is not significant). Prior: BMD 0.817 g/cm2. Baseline: BMD 0.920 g/cm2. AP SPINE L1-L3 (excluding L4): The data of L1-L4 has been changed to exclude the L4 vertebral body, because degenerative sclerosis at this level may cause overestimation of lumbar spine density. Current: BMD 0.887 g/cm2, Z-score -0.2, T-score -2.4, osteopenia, 3.7% decrease from previous, 11.7% decrease from baseline (<5% change is not significant). Prior: BMD 0.921 g/cm2. Baseline: BMD 1.005 g/cm2. IDENTIFIED RISK FACTORS: Menopause, kidney disease. HISTORY OF FRACTURE: None listed. MEDICATIONS: Vitamin D. MM/XR DEXA axial skeleton IMPRESSION: 1. DIAGNOSIS: Osteopenia based on the lowest T-score value of -2.4 in the femoral neck and lumbar spine applying World Health Organization criteria. 2. 10-YEAR FRACTURE RISK PREDICTION, FRAX: Major osteoporotic fracture (clinical spine, forearm, hip or shoulder) 8.2%. Hip fracture 2.3%. 3. Treatment Recommendations: NOF guidelines recommend consideration for treatment in postmenopausal women and men age 50 and older presenting with the following: -A hip or vertebral (clinical or morphometric) fracture. -T-score less than or equal to -2.5 at the femoral neck or spine after appropriate evaluation to exclude secondary causes. -Low bone mass at the hip or spine and a 10-year fracture probability by FRAX of greater than or equal to 3% for hip fracture or greater than or equal to 20% for major osteoporotic fracture based on the [place] adapted WHO algorithm. 4. Other Recommendations: All treatment decisions require clinical judgment and consideration of individual patient factors, including patient preferences, comorbidities, previous drug use, risk factors not captured in the FRAX model (e.g. frailty, falls, vitamin D deficiency, increased bone turnover, interval significant decline in bone density) and possible under or overestimation of fracture risk by FRAX. Additional medical evaluation for secondary cause of low bone mineral density may be appropriate. FUTURE SCAN RECOMMENDATION: People with diagnosed cases of osteoporosis or at high risk for fracture should have regular bone mineral density tests. For patients eligible for Medicare, routine testing is allowed once every 2 years. The testing frequency can be increased to one year for patients who have rapidly progressing disease, those who are receiving or discontinuing medical therapy to restore bone mass, or have additional risk factors.
== END 2024-04-28 13:23 | disposition home or self-care (01) ==
LOC: HO.MAMMO 13:22
PROVIDERS: PCP Internal Medicine; Visit Provider Internal Medicine
DX: M81.0 Age-related osteoporosis without current pathological fracture (principal); M85.80 Other specified disorders of bone density and structure, unspecified site
CPT/HCPCS: 77080

== ENCOUNTER 2024-05-21 14:09 | Outpatient (AMB) | payer MEDICARE, SELFPAY ==
--- NOTE | 2024-05-21 14:12 | A.OFFVIS_ITS ---
Vital Signs 05/21/24 14:13 Height 4 ft 9 in Weight 110 lb 3.698 oz BMI 23.9 BP 128/61 Blood Pressure Location Rt brachial Position Sitting Pulse 91 Intake Visit Reasons: Constipation Intake Note: Evita presents to in office follow up of cologuard. CC: Per patient's interpreting for her she is doing excellent. Industrial Economics Teacher Required: Yes Industrial Economics Teacher Language: Albanian Industrial Economics Teacher Name: Accompanied by: Allergies No Known Allergies [No Known Allergies*] Allergy (Verified 05/21/24 14:20) HPI Comments Details: Assessment & Plan (1) Chronic idiopathic constipation: Code(s): K59.04 - Chronic idiopathic constipation Category: Medical (2) GERD (gastroesophageal reflux disease): Code(s): K21.9 - Gastro-esophageal reflux disease without esophagitis Category: Medical Qualifiers: Esophagitis presence: without esophagitis Qualified Code(s): K21.9 - Gastro-esophageal reflux disease without esophagitis (3) Pre-op examination: Code(s): Z01.818 - Encounter for other preprocedural examination Category: Medical Plan Thai # translates per patient request They have been paying $300 a month for the motegrity and they would like to try to go back to [place]. They feels that she may have been having memory problems and this drug may have been working, but she forgot is she would have BM. They opt for Cologuard instead of colonoscopy after watching video. ROV 8 weeks. Medications: New linaclotide (Linzess) 290 mcg PO QAM 30 caps 6RF 30 days K59.04 - Chronic i diopathic constipation linaclotide (Linzess) 290 mcg PO QAM 30 days 30 caps 6RF K59.04 - Chronic idiopathic constipation On Hold prucalopride (Motegrity) Hold Comment: Doctor's Order 2 mg PO DAILY 90 tabs 3RF K59.04 - Chronic idiopathic constipation TODAY'S VISIT Son translates per patient request Her Cologuard test was negative 03/09/2024 She is doing fine on the Linzess at 290 micro g. She and her son are both happy with the results and it does seem that it was her memory that was making it seem like she was not responding to other medications. She is now on a new medicine, Namenda, for her memory but she just started it so they are hoping to see some improvement within 3 months. Return office visit in 1 year [facility] Medical History Mixed dementia History of pulmonary embolism Hypertension Hypertriglyceridemia Anemia Vitamin B12 deficiency GERD (gastroesophageal reflux disease) Paranoid schizophrenia Depression Type 2 diabetes mellitus with hyperglycemia Surgical History History of esophagogastroduodenoscopy (EGD) Hx of colonoscopy Family History Mother Diabetes Social History Household Members: Spouse Housing: House Are you a primary child care centre manager to a significant other at home: No Do you presently have visiting nurse or other home services: No Alcohol intake: never Patient Tobacco Use Status: Never used Tobacco e-Cigarette/Vaping Use: Never Used Second Hand Smoke Exposure: No service: No Current occupational status: retired Cognitive needs: No Hearing needs: No Vision needs: Yes (glasses) Review of Systems Const Denies fatigue, Denies fever(s), Denies night sweats, Denies poor appetite and Denies weight loss Eyes Details: Glasses Reports requires corrective lenses ENT Reports Normal hearing present, Denies dental pain, Denies dysphagia, Denies hearing loss, Denies mouth pain, Denies odynophagia, Denies throat swelling, Denies tongue swelling and Reports other (Dentition adequate) Card Reports no additional complaints Resp Reports no additional complaints GI Details: Denies abdominal pain, Denies melena, Denies bloating, Denies hematochezia, Reports constipation, Denies GI cramping, Denies dysphagia, Denies excessive flatus, Denies early satiety, Denies heartburn, Denies diarrhea, Denies nausea, Denies odynophagia, Denies vomiting and Denies hematemesis Skin/Breast Denies pruritus, Denies lesions, Denies rash and Denies jaundice Neuro Reports Normal hearing present, Denies Abnormal speech present and Reports memory loss Psych Reports memory loss Endo Denies fatigue Aller/Immun Denies throat swelling and Denies tongue swelling Physical Exam Vital Signs: Last Vital Signs Pulse 91 05/21/24 14:13 BP 128/61 05/21/24 14:13 BMI result Body Mass Index 23.9 Const General: cooperative, no acute distress, well developed and well groomed Nutritional Appearance: average body habitus and well nourished Orientation/consciousness: oriented to person, oriented to place and oriented to time Limitations: language barrier and other limitations HEENT Head: Yes normocephalic and Yes atraumatic Eyes General: appearance normal, both eyes and all related structures Pupils: Equal, round and reactive pupils present Neck Neck: Yes normal visual inspection and Yes no lymphadenopathy Thyroid: Thyroid normal Resp Effort & Inspection: normal respiratory effort and able to speak in complete sentences Auscultation: clear to auscultation bilaterally Cardio Rate: regular rate Rhythm: regular rhythm Heart sounds: Normal, physiologic split S2 sound present Peripheral pulses: radial pulses present and posterior tibial pulses present GI Inspection: No distended and No Abdominal panniculus present Palpation (GI): Soft to palpation, nontender, no guarding, not rigid and No hepatosplenomegaly present Percussion: Yes normal to percussion Auscultation: normal bowel sounds Rectal Exam - Female: deferred Skin General skin exam: no rashes or lesions noted, turgor normal, skin not dry, no jaundice, No spider nevi and no striae Rashes: no rashes Nails: normal Neuro General: oriented to person, oriented to place and oriented to time Cranial nerves: Yes Equal, round and reactive pupils present and Yes Normal hearing present Speech: No Abnormal speech present Extrem General: Yes normal to inspection, No clubbing, No cyanosis and No edema Psych Appearance: grossly normal and well kempt Mental Status: mental status grossly normal Speech and movement: Normal speech and movement present Affect: normal affect Attitude: cooperative Thought process: Normal thought process present and not confabulating Thought content: Normal thought content present Insight: Poor insight present (Psych) Judgement: Poor judgement present (Psych) Assessment & Plan Assessment & Plan (1) Chronic idiopathic constipation: Code(s): K59.04 - Chronic idiopathic constipation Category: Medical (2) GERD (gastroesophageal reflux disease): Code(s): K21.9 - Gastro-esophageal reflux disease without esophagitis Category: Medical Qualifiers: Esophagitis presence: without esophagitis Qualified Code(s): K21.9 - Gastro-esophageal reflux disease without esophagitis Plan Son translates per patient request Her Cologuard test was negative 03/09/2024 She is doing fine on the Linzess at 290 micro g. She and her son are both happy with the results and it does seem that it was her memory that was making it seem like she was not responding to other medications. She is now on a new medicine, Namenda, for her memory but she just started it so they are hoping to see some improvement within 3 months. Return office visit in 1 year Medications: Refilled linaclotide (Linzess) 290 mcg PO QAM 30 caps 6RF 30 days K59.04 - Chronic idiopathic constipation pantoprazole 40 mg PO DAILY 100 tabs 3RF K21.9 - Gastro-esophageal reflux disease without esophagitis Coding Level of Care Code Est Pt Level 3 (22812) Diagnoses Chronic idiopathic constipation K59.04 Gastroesophageal reflux disease without esophagitis K21.9 Esophagitis presence: without esophagitis
[2024-05-21 14:13] VITALS: BP 128/61; PULSE 91; BMI 23.9
== END 2024-05-21 15:41 | disposition home or self-care (01) ==
PROVIDERS: PCP Internal Medicine; Visit Provider Nurse Practitioner
DX: K59.04 Chronic idiopathic constipation (principal); K21.9 Gastro-esophageal reflux disease without esophagitis
CPT/HCPCS: 99213

== ENCOUNTER → 2024-05-21 14:09 | Outpatient (BNVA) | payer MEDICARE, SELFPAY | PROVIDERS: PCP Internal Medicine; Visit Provider Nurse Practitioner | DX: K59.04 Chronic idiopathic constipation (principal); K21.9 Gastro-esophageal reflux disease without esophagitis | CPT/HCPCS: 99212 ==

== ENCOUNTER 2024-08-05 14:15 | Outpatient (REF) | payer MEDICARE, SELFPAY ==
--- NOTE | ~2024-08-05 | MM_ITS ---
EXAMINATION: MM SCREENING DIGITAL BREAST TOMOSYNTHESIS, BILATERAL CLINICAL INFORMATION: Screening. Asymptomatic. COMPARISON: Mammography: Comparison is made with available priors TECHNIQUE: Digital breast mammography with tomosynthesis is performed in both the craniocaudal and mediolateral oblique views along with computer-aided detection (CAD). FINDINGS: The breasts are extremely dense, which lowers the sensitivity of mammography (ACR BI-RADS breast composition Category d). Left: There are no significant masses, abnormal calcifications, or other abnormalities. Right: Asymmetry superior breast on MLO view posterior depth. No suspicious calcifications or other abnormal findings. MM/MM tomosynthesis screening BI IMPRESSION: Additional imaging is recommended ASSESSMENT: BI-RADS BI-RADS 0 - Incomplete: Needs additional Imaging. RECOMMENDATION: 1. Additional views of the right breast 2. Targeted ultrasound if warranted after review of the additional views. 3. Radiology department staff will contact the patient for additional imaging. Additional Imaging required This examination should not preclude the clinical evaluation of a suspicious palpable abnormality. This patient's information was entered into a reminder system with a target due date for their next mammogram. Electronically signed by: Cami Unger DO 08/16/2024 09:35 AM RENAN
== END 2024-08-05 14:16 | disposition home or self-care (01) ==
LOC: HO.MAMMO 14:15
PROVIDERS: PCP Internal Medicine; Visit Provider Internal Medicine
DX: Z12.31 Encounter for screening mammogram for malignant neoplasm of breast (principal)
CPT/HCPCS: 77063; 77067

== ENCOUNTER → 2024-08-05 14:30 | Outpatient (BNV) | payer MEDICARE, SELFPAY | PROVIDERS: PCP Internal Medicine; Visit Provider Internal Medicine | DX: Z12.31 Encounter for screening mammogram for malignant neoplasm of breast (principal) | CPT/HCPCS: 77063; 77067 ==

== ENCOUNTER 2024-08-10 14:19 | Outpatient (AMB) | payer MEDICARE, SELFPAY ==
--- NOTE | 2024-08-10 14:20 | A.OFFVIS_ITS ---
Vital Signs 08/10/24 14:21 Height 4 ft 9 in Weight 112 lb BMI 24.2 Intake Visit Reasons: 4 month F/U - Confirmed Intake Note: Patient presents for 4 month follow up. Allergies No Known Allergies [No Known Allergies*] Allergy (Verified 08/10/24 14:25) HPI Comments Details: 73y/o female with paranoid Schizophrenia, PTSD comes for follow up of dementia. she is on 28mg namenda . she is accompanied by her who helps with her history.she declined speech and cognitive therapy . she wants to stay home . In 1995 she overdosed on stellazine .In 2013 her mother and her psychiatric illness worsened and she was hospitalized. she has been having memory issues since then It has progressed since then . Her memory issues are mostly short term but also has some problems recalling shelter events.. she frequently loses things, misplaces things, repeats herself, forgets conversations, confused with her own family members does not remember her grand nieces. she has trouble using her remote. she does not cook, or drive . her supervises while she is dressing and showering.she can sheela the phone but calls only her sister. No h/o head injury . [facility] Medical History Mixed dementia History of pulmonary embolism Hypertension Hypertriglyceridemia Anemia Vitamin B12 deficiency GERD (gastroesophageal reflux disease) Paranoid schizophrenia Depression Type 2 diabetes mellitus with hyperglycemia Surgical History History of esophagogastroduodenoscopy (EGD) Hx of colonoscopy Family History Mother Diabetes Social History Household Members: Spouse Housing: House Are you a primary medical care evaluation specialist to a significant other at home: No Do you presently have visiting nurse or other home services: No Alcohol intake: never Patient Tobacco Use Status: Never used Tobacco e-Cigarette/Vaping Use: Never Used Second Hand Smoke Exposure: No service: No Current occupational status: retired Cognitive needs: No Hearing needs: No Vision needs: Yes (glasses) Review of Systems Neuro Reports confusion Psych Reports confusion Physical Exam Vital Signs: BMI result Body Mass Index 24.2 Const Other: she has involuntary truncal movements General: cooperative, comfortable, no acute distress and confusion Nutritional Appearance: average body habitus Orientation/consciousness: confusion Eyes Pupils: Equal, round and reactive pupils present Neuro General: gait normal, tone normal, moves all extremities, no focal motor deficits and confusion Cranial nerves: Yes Facial sensation intact/muscles of mastication intact, Yes Equal, round and reactive pupils present, Yes Bilaterally intact EOM present, Yes Nystagmus not present and Yes Normal facial strength present Cognition (Neuro): abnormal cognition Gait exam (Neuro): Normal gait present Motor exam (neuro): 5/5 motor strength present throughout and Normal motor muscle tone present throughout Assessment & Plan Assessment & Plan (1) Mixed dementia: Comment: worsened by schizophrenia , medications, PTSD etc. Code(s): G30.9 - Alzheimer's disease, unspecified; F01.50 - Vascular dementia, unspecified severity, without behavioral disturbance, psychotic disturbance, mood disturbance, and anxiety; F02.80 - Dementia in other diseases classified elsewhere, unspecified severity, without behavioral disturbance, psychotic disturbance, mood disturbance, and anxiety Category: Medical Plan Reviewed her labs MRI Brain - shows volume loss and white matter changes Speech and cognitive therapy.- patient declines Patients spouse wants to try stopping namenda XR 28 mg qd as she is worse since she started on medication Her friend helps with her care taking. [facility] elder care provides meals on wheel Coding Level of Care Code Est Pt Level 4 (92048) Diagnoses Mixed dementia G30.9; F01.50; F02.80
[2024-08-10 14:21] VITALS: BMI 24.2
== END 2024-08-10 14:53 | disposition home or self-care (01) ==
PROVIDERS: PCP Internal Medicine; Visit Provider Psychiatry & Neurology Neurology
DX: G30.9 Alzheimer's disease, unspecified (principal); F01.50 Vascular dementia, unspecified severity, without behavioral disturbance, psychotic disturbance, mood disturbance, and anxiety; F02.80 Dementia in other diseases classified elsewhere, unspecified severity, without behavioral disturbance, psychotic disturbance, mood disturbance, and anxiety
CPT/HCPCS: 99214

== ENCOUNTER → 2024-08-10 14:19 | Outpatient (BNVA) | payer MEDICARE, SELFPAY | PROVIDERS: PCP Internal Medicine; Visit Provider Psychiatry & Neurology Neurology | DX: G30.9 Alzheimer's disease, unspecified (principal); F01.50 Vascular dementia, unspecified severity, without behavioral disturbance, psychotic disturbance, mood disturbance, and anxiety; F02.80 Dementia in other diseases classified elsewhere, unspecified severity, without behavioral disturbance, psychotic disturbance, mood disturbance, and anxiety | CPT/HCPCS: 99212 ==

== ENCOUNTER 2024-09-17 14:43 | Outpatient (AMB) | payer MEDICARE, SELFPAY ==
--- NOTE | 2024-09-17 14:45 | MHC.PC.OV ---
Vital Signs 09/17/24 14:49 Height 4 ft 9 in Weight 111 lb 6 oz BMI 24.1 BP 100/64 Blood Pressure Location Lt brachial Position Sitting Pulse 92 Pulse Source Pulse Oximeter Pulse Oximetry (%) 98 Oxygen Delivery Method Room Air Intake Visit Reasons: 6 month f/u Intake Note: Patient is here to follow up on DM, Hypercholesterolemia, HTN. Requesting for bone density results. Cheese Maker Required: No Air Sealing Technician: Present Accompanied by: Spouse Allergies No Known Allergies [No Known Allergies*] Allergy (Verified 09/17/24 14:49) Medication List - Last Reconciled 09/17/24 by Sherry Kurtz PA-C ascorbate calcium (vitamin C) 500 mg PO DAILY aspirin (Adult Aspirin Regimen) 81 mg PO DAILY benztropine 0.5 mg PO BID blood sugar diagnostic (Accu-Chek Guide test strips) As directed up to QID docusate sodium 100 mg PO TID fluoxetine (Prozac) 40 mg PO DAILY linaclotide (Linzess) 290 mcg PO QAM 30 days lorazepam (Ativan) 1 mg PO TID PRN memantine 28 mg PO DAILY 30 days mirtazapine 15 mg PO BEDTIME mometasone 0.1% 1 appl topical DAILY multivitamin 1 cap PO DAILY olanzapine 15 mg PO BEDTIME olanzapine 5 mg PO BID PRN omega 9-elu-zoc-fish oil 1,200 (144-216) mg (Fish Oil) 1 cap PO DAILY pantoprazole 40 mg PO DAILY simvastatin 5 mg PO QPM Tobacco use date assessed: 09/17/24 Fall risk assessment: No Falls in past year Last assessed Fall Risk: 09/17/24 Dental Screening Dental Screen Date: 09/17/24 Did you have a dental visit in the last 12 months?: Yes Did you have a dental problem in the last 6 months where you did not have access to dental care?: No Was dental information given to patient?: Patient has dentist HPI 6 month f/u HPI Details 73-year-old female with a history of controlled diabetes mellitus, hypertension, GERD, hypercholesterolemia, dementia and recurrent major depression last seen by Dr. Burnett March 2024 coming in for follow up. In review of the notes, patient was seen by [facility] 08/10/2024 for follow up on dementia MRI shows volume loss and white matter changes patient declined speech and cognitive therapy and was discontinued on Namenda. Patient was seen by [facility] 05/21/2024 continue on Linzess. Patient presents today with her who is they primarily historian for this visit. Tells us she has been doing better without the Namenda but continues to take the memantine with good effect. She has good family support at home. She is still regularly confused but has been working on exercising more in the house and working on good diet. She has been taking Linzess and feels this is helpful for constipation. Does mentioned she drinks lots of water and we will occasionally have dry mouth. Denies any urinary symptoms or incontinence at this time. [facility] Medical History Mixed dementia History of pulmonary embolism Hypertension Hypertriglyceridemia Anemia Vitamin B12 deficiency GERD (gastroesophageal reflux disease) Paranoid schizophrenia Depression Type 2 diabetes mellitus with hyperglycemia Surgical History History of esophagogastroduodenoscopy (EGD) Hx of colonoscopy Family History Mother Diabetes Social History Household Members: Spouse Housing: House Are you a primary body care manager to a significant other at home: No Do you presently have visiting nurse or other home services: No Alcohol intake: never Patient Tobacco Use Status: Never used Tobacco e-Cigarette/Vaping Use: Never Used Second Hand Smoke Exposure: No service: No Current occupational status: retired Cognitive needs: No Hearing needs: No Vision needs: Yes (glasses) Questionnaire PHQ-9 Over the last 2 weeks, how often have you been bothered by any of the following problems? 1. Little interest or pleasure in doing things: not at all 2. Feeling down, depressed, or hopeless: not at all 3. Trouble falling or staying asleep, or sleeping too much: not at all 4. Feeling tired or having little energy: not at all 5. Poor appetite or overeating: not at all 6. Feeling bad about yourself - or that you are a failure or have let yourself or your family down: not at all 7. Trouble concentrating on things, such as reading the newspaper or watching television: not at all 8. Moving or speaking so slowly that other people could have noticed. Or the opposite - being so fidgety or restless that you have been moving around a lot more than usual: not at all 9. Thoughts that you would be better off or of hurting yourself in some way: not at all Total score: 0 Depression Screening Interpretation: Negative Depression Screening Done: Yes Source: Developed by Drs. Berlin Dubois, Lakshmi Bob, Pratik Kelly and colleagues, with an educational catalina from [employer]. Thrive Questionnaire Date Thrive assessed: 09/17/24 I am a: Patient What is your living situation today?: I have a steady place to live Within the past 12 months, did the food you bought not last and you didn't have the money to get more?: Never true Within the past 12 months, did you worry whether your food would run out before you got money to buy more?: Never true Do you have trouble paying for medicines?: No Do you have trouble getting transportation to medical appointments?: No Do you have trouble paying your heating and electricity bill?: No Do you have trouble taking care of your child, family member or friend?: No Do you have trouble with day-to-day activities such as bathing, preparing meals, shopping, managing finances, etc.?: No Are you currently unemployed and looking for a job?: No Are you interested in more education?: No Currently or been in a relationship where the following occur: No concerns reported THRIVE Score: 0 AUDIT C Alcohol Use Questionnaire (AUDIT-C) 1. How often do you have a drink containing alcohol?: Never Total Score: 0 SHERIF-7 AMB Questionnaire SHERIF-7 Date SHERIF - 7 assessed: 09/17/24 Feeling nervous, anxious, or on edge: 0 = Not at all Not being able to stop or control worryin = Not at all Worrying too much about different things: 0 = Not at all Trouble relaxin = Not at all Being so restless that it is hard to sit still: 0 = Not at all Becoming easily annoyed or irritable: 0 = Not at all Feeling afraid as if something awful might happen: 0 = Not at all Total SHEIRF-7 score (0-4 normal; 5-9 mild; 10-14 moderate; 15-21 severe): 0 Source: Developed by Drs. Berlin Dubois, Lakshmi Bob, Pratik Kelly and colleagues, with an educational catalina from [employer]. Review of Systems Const Denies body aches, Denies chills and Denies fever(s) Eyes Reports no additional complaints ENT Denies dizziness Card Denies chest pain, Denies lightheadedness and Denies dyspnea Resp Denies cough and Denies dyspnea GI Denies abdominal pain, Reports constipation and Denies diarrhea Reports no additional complaints Musc Reports no additional complaints and Denies abnormal gait Skin/Breast Reports system reviewed and no additional complaints, except as documented Neuro Denies abnormal gait and Denies dizziness Psych Reports no additional complaints Physical exam (Primary Care) BMI result Body Mass Index 24.1 Tobacco/Smoking Status: Tobacco use Status Tobacco use date assessed 09/17/24 09/17/24 14:56 Patient Tobacco Use Status Never used Tobacco 09/17/24 14:56 e-Cigarette/Vaping Use Never Used 09/17/24 14:56 PHQ-9: PHQ-9 Score PHQ-9: Total score 0 09/17/24 14:56 Depression Screening Interpretation: Negative Thrive Assessment: Date of Thrive Assessment Date Thrive assessed 09/17/24 09/17/24 14:56 Currently or been in a relationship where the following occur: No concerns reported Const General: cooperative, healthy appearing, comfortable and no acute distress Orientation/consciousness: patient oriented x3 HENMT Head: Yes normocephalic Ears: hearing grossly normal bilaterally General nose exam: Normal external nose present Eyes General: appearance normal, both eyes and all related structures Conjunctivae: conjunctivae normal Neck Neck: Yes full ROM and Yes no lymphadenopathy Resp Effort & Inspection: normal respiratory effort Auscultation: clear to auscultation bilaterally, no crackles, no rales, no rhonchi and no wheezes Cardio Rate: regular rate Rhythm: regular rhythm Skin General skin exam: no rashes or lesions noted Neuro General: patient oriented x3 Gait exam (Neuro): Normal gait present Extrem General: Yes normal to inspection, Yes full ROM and No edema Psych Affect: normal affect Attitude: cooperative Insight: Good insight present (Psych) Judgement: Good judgement present (Psych) Results AMB Hemoglobin A1c AMB Hemoglobin A1c 5.9 % Last Edit by STEPHANIE Sheffield on 09/17/24 15:04 Coding Level of Care Code Est Pt Level 3 (19357) Diagnoses Mixed dementia G30.9; F01.50; F02.80 Hypercholesterolemia E78.00 Essential hypertension I10 Hypertension type: essential hypertension Gastroesophageal reflux disease without esophagitis K21.9 Esophagitis presence: without esophagitis Type 2 diabetes mellitus with hyperglycemia, without long-term current use of insulin E11.65 Diabetes mellitus care home insulin use: without care home use Assessment & Plan Assessment & Plan (1) Mixed dementia: Comment: worsened by schizophrenia , medications, PTSD etc. Code(s): G30.9 - Alzheimer's disease, unspecified; F01.50 - Vascular dementia, unspecified severity, without behavioral disturbance, psychotic disturbance, mood disturbance, and anxiety; F02.80 - Dementia in other diseases classified elsewhere, unspecified severity, without behavioral disturbance, psychotic disturbance, mood disturbance, and anxiety Category: Medical Plan: Following with Neurology no longer taking Namenda currently on Memantine. states her mental status has been stable at home and is better with the memantine. (2) Hypercholesterolemia: Code(s): E78.00 - Pure hypercholesterolemia, unspecified Category: Medical Plan: Avoid foods that are high in cholesterol such as red meat, fried foods, eggs and baked goods. Triglyceride goal of less than 150 and LDL goal of less than 100. Repeat lab work prior to next visit. (3) Hypertension: Code(s): I10 - Essential (primary) hypertension Category: Medical Qualifiers: Hypertension type: essential hypertension Qualified Code(s): I10 - Essential (primary) hypertension Plan: Continue on current blood pressure medication. Avoid salt intake and encourage healthy diet and regular exercise. (4) GERD (gastroesophageal reflux disease): Code(s): K21.9 - Gastro-esophageal reflux disease without esophagitis Category: Medical Qualifiers: Esophagitis presence: without esophagitis Qualified Code(s): K21.9 - Gastro-esophageal reflux disease without esophagitis Plan: Avoid trigger foods such as citrus, tomato products, soda, caffeine, spicy foods and other foods that may be irritating to your stomach. Avoid laying flat 3-4 hours after eating and elevate the head of the bed 30 degrees to prevent acid from moving into the esophagus. (5) Type 2 diabetes mellitus with hyperglycemia: Comment: Dr. Lema Code(s): E11.65 - Type 2 diabetes mellitus with hyperglycemia Category: Medical Qualifiers: Diabetes mellitus superintendent container terminal insulin use: without superintendent container terminal use Qualified Code(s): E11.65 - Type 2 diabetes mellitus with hyperglycemia Plan: Decrease the amount of carbohydrates such as pasta, bread, rice, and potatoes and limit the amount of sweets. Although fruits are generally healthy they should be eaten in moderation as they are still high in sugar. Hemoglobin A1c goal of less than 7%. Not currently on medical management. A1c 5.9% today which is within goal, will continue to monitor at this time and no need for medical management. Follow up in 6 months. Plan This note was constructed using voice recognition software. While every effort has been made to ensure accuracy and trash collector supervisor, still areas may have been included sometimes these areas may affect the content or meeting of the given symptoms. Total time spent caring for the patient today was 30 minutes. This includes time spent before the visit reviewing the chart, time spent during the visit, and time spent after the visit and documentation. Orders: Orders AMB Hemoglobin A1c Today E11.65 - Type 2 diabetes mellitus with hyperglycemia Lipid Panel Today E78.00 - Pure hypercholesterolemia, unspecified Vitamin D 25-OH Total Today M85.80 - Other specified disorders of bone density and structure, unspecified site, Z00.00 - Encounter for general adult medical examination without abnormal findings Comprehensive Met. Panel Today E78.00 - Pure hypercholesterolemia, unspecified, Z00.00 - Encounter for general adult medical examination without abnormal findings Complete Blood Count Auto Diff Today D64.9 - Anemia, unspecified, Z00.00 - Encounter for general adult medical examination without abnormal findings Free T4 (Free Thyroxine) Today Z00.00 - Encounter for general adult medical examination without abnormal findings TSH reflex Free T4 Today Z00.00 - Encounter for general adult medical examination without abnormal findings Vitamin B12 and Folate Today M85.80 - Other specified disorders of bone density and structure, unspecified site, Z00.00 - Encounter for general adult medical examination without abnormal findings Medications: New blood sugar diagnostic (Accu-Chek Guide test strips) As directed up to QID 100 ea 2RF
[2024-09-17 14:49] VITALS: BP 100/64; PULSE 92; O2SAT 98; BMI 24.1
== END 2024-09-17 15:32 | disposition home or self-care (01) ==
PROVIDERS: PCP Internal Medicine
DX: E11.65 Type 2 diabetes mellitus with hyperglycemia (principal); G30.9 Alzheimer's disease, unspecified; F01.50 Vascular dementia, unspecified severity, without behavioral disturbance, psychotic disturbance, mood disturbance, and anxiety; F02.80 Dementia in other diseases classified elsewhere, unspecified severity, without behavioral disturbance, psychotic disturbance, mood disturbance, and anxiety; E78.00 Pure hypercholesterolemia, unspecified; I10 Essential (primary) hypertension; K21.9 Gastro-esophageal reflux disease without esophagitis

== ENCOUNTER → 2024-09-17 14:43 | Outpatient (BNVA) | payer MEDICARE, SELFPAY | PROVIDERS: PCP Internal Medicine | DX: Z00.00 Encounter for general adult medical examination without abnormal findings (principal); E78.00 Pure hypercholesterolemia, unspecified; I10 Essential (primary) hypertension; K21.9 Gastro-esophageal reflux disease without esophagitis; G30.9 Alzheimer's disease, unspecified; F02.80 Dementia in other diseases classified elsewhere, unspecified severity, without behavioral disturbance, psychotic disturbance, mood disturbance, and anxiety; F01.50 Vascular dementia, unspecified severity, without behavioral disturbance, psychotic disturbance, mood disturbance, and anxiety; E11.65 Type 2 diabetes mellitus with hyperglycemia | CPT/HCPCS: 83036; 96127; 99212 ==

== ENCOUNTER 2024-09-29 12:06 | Outpatient (REF) | payer MEDICARE, SELFPAY ==
--- NOTE | ~2024-09-29 | MM_ITS ---
EXAMINATION: MM DIAGNOSTIC DIGITAL BREAST TOMOSYNTHESIS, RIGHT Limited right breast ultrasound. CLINICAL INFORMATION: Call back from screening for asymmetry in the right breast on MLO view. COMPARISON: Mammography: Comparison is made with available prior examinations. TECHNIQUE: Digital breast tomosynthesis is performed in both the craniocaudal and mediolateral oblique views along with computer-aided detection (CAD). Synthesized 2D images are generated from the tomosynthesis. Limited right breast ultrasound. FINDINGS: The breasts are heterogeneously dense, which may obscure small masses (ACR BI-RADS breast composition Category c). Asymmetry in the superior right breast posterior depth on MLO view partially effaces on additional imaging projections. No suspicious calcifications or other abnormal findings. Targeted color Doppler ultrasound scanning from 10 1:00 demonstrates normal fibronodular breast tissue. MM/MM tomosynthesis added views R IMPRESSION: Asymmetry in the superior right breast posterior depth on MLO view which partially effaces and without sonographic correlate. Recommend six-month follow-up mammography for further evaluation of stability. ASSESSMENT: BI-RADS BI-RADS 3 - Probably benign finding(s) - 6 month follow-up suggested RECOMMENDATION: 6 Month F/U Results were provided to the patient at time of visit by the technologist. This patient's information was entered into a reminder system with a target due date for their next mammogram. Electronically signed by: Cami Unger DO 09/29/2024 01:14 PM RENAN
== END 2024-09-29 12:07 | disposition home or self-care (01) ==
LOC: HO.MAMMO 12:06
PROVIDERS: PCP Internal Medicine; Visit Provider Internal Medicine
DX: N64.89 Other specified disorders of breast (principal); R92.331 Mammographic heterogeneous density, right breast
CPT/HCPCS: 76642; 77061; 77065

== ENCOUNTER → 2024-09-29 12:30 | Outpatient (BNV) | payer MEDICARE, SELFPAY | PROVIDERS: PCP Internal Medicine; Visit Provider Internal Medicine | DX: R92.8 Other abnormal and inconclusive findings on diagnostic imaging of breast (principal) | CPT/HCPCS: 76642; 77065; G0279 ==

== ENCOUNTER 2025-03-29 14:42 | Outpatient (REF) | payer MEDICARE, SELFPAY ==
--- NOTE | ~2025-03-29 | MM_ITS ---
EXAMINATION: MM DIAGNOSTIC DIGITAL BREAST TOMOSYNTHESIS, RIGHT CLINICAL INFORMATION: 6 month follow-up for asymmetry in the superior right breast middle to posterior depth on MLO view without prior sonographic correlate. COMPARISON: Mammography: Priors on PACS. TECHNIQUE: Digital breast tomosynthesis is performed in both the craniocaudal and mediolateral oblique views along with computer-aided detection (CAD). Synthesized 2D images are generated from the tomosynthesis. FINDINGS: The breasts are heterogeneously dense, which may obscure small masses (ACR BI-RADS breast composition Category c). Asymmetry in the superior right breast posterior depth on MLO view is not significantly changed less conspicuous compared with prior. No prior sonographic correlate was seen. No suspicious calcifications or other abnormal findings. MM/MM tomosynthesis diagnostic RT IMPRESSION: Asymmetry superior right breast posterior depth on MLO view without prior sonographic correlate which is less conspicuous compared with prior's. Recommend six-month follow-up mammography when the patient is due for bilateral mammogram for further evaluation of stability. ASSESSMENT: BI-RADS BI-RADS 3 - Probably benign finding(s) - 6 month follow-up suggested RECOMMENDATION: 6 Month F/U Results were provided to the patient at time of visit by the technologist. This patient's information was entered into a reminder system with a target due date for their next mammogram. Electronically signed by: Cami Unger DO 03/29/2025 03:13 PM EDT
--- OUTSIDE RECORDS SUMMARY | 2025-03-29 16:02 | XMS_ITS | Patient Health Record ---
Author Organization [facility] Address [address] [place] [id number] Care Team Providers Care Cleaning Associate Name Role Phone Berlin Spivey Unavailable [phone] Reason For Referral No Information Plan Of Treatment No Information
== END 2025-03-29 14:43 | disposition home or self-care (01) ==
LOC: HO.MAMMO 14:42
PROVIDERS: PCP Internal Medicine; Visit Provider Internal Medicine
DX: N64.89 Other specified disorders of breast (principal)
CPT/HCPCS: 77061; 77065

== ENCOUNTER → 2025-03-29 15:00 | Outpatient (BNV) | payer MEDICARE, SELFPAY | PROVIDERS: PCP Internal Medicine; Visit Provider Internal Medicine | DX: Z12.31 Encounter for screening mammogram for malignant neoplasm of breast (principal) | CPT/HCPCS: 77065; G0279 ==

== ENCOUNTER 2025-05-20 14:06 | Outpatient (AMB) | payer MEDICARE, SELFPAY ==
--- NOTE | 2025-05-20 14:11 | A.OFFVIS_ITS ---
Vital Signs 05/20/25 14:12 Height 4 ft 11 in Weight 104 lb 0.931 oz BMI 21.0 BP 126/71 Blood Pressure Location Lt brachial Position Sitting Temp 88 F L Intake Visit Reasons: Follow up 1 year Intake Note: Evita presents to in 1 year follow up of CIC. CC: Per patient's (interpreting for PT) she is doing well. Manufacturing Area Manager Required: Yes Manufacturing Area Manager Language: [place]erratian Manufacturing Area Manager Name: Accompanied by: Allergies No Known Allergies (No Known Allergies*) Allergy (Verified 05/20/25 14:23) HPI HPI Follow up 1 year: Details: Assessment & Plan (1) Chronic idiopathic constipation: Code(s): K59.04 - Chronic idiopathic constipation Category: Medical (2) GERD (gastroesophageal reflux disease): Code(s): K21.9 - Gastro-esophageal reflux disease without esophagitis Category: Medical Qualifiers: Esophagitis presence: without esophagitis Qualified Code(s): K21.9 - Gastro-esophageal reflux disease without esophagitis Plan Son translates per patient request Her Cologuard test was negative 03/09/2024 She is doing fine on the Linzess at 290 micro g. She and her son are both happy with the results and it does seem that it was her memory that was making it seem like she was not responding to other medications. She is now on a new medicine, Namenda, for her memory but she just started it so they are hoping to see some improvement within 3 months. Return office visit in 1 year Medications: Refilled linaclotide (Linzess) 290 mcg PO QAM 30 caps 6RF 30 days K59.04 - Chronic idiopathic constipation pantoprazole 40 mg PO DAILY 100 tabs 3RF K21.9 - Gastro-esophageal reflux disease without esophagitis TODAY'S VISIT Son translates per patient request [facility] Medical History Mixed dementia History of pulmonary embolism Hypertension Hypertriglyceridemia Anemia Vitamin B12 deficiency GERD (gastroesophageal reflux disease) Paranoid schizophrenia Depression Type 2 diabetes mellitus with hyperglycemia Surgical History History of esophagogastroduodenoscopy (EGD) Hx of colonoscopy Family History Mother Diabetes Social History Household Members: Spouse Housing: House Are you a primary care trainer to a significant other at home: No Do you presently have visiting nurse or other home services: No Alcohol intake: never Patient Tobacco Use Status: Never used Tobacco e-Cigarette/Vaping Use: Never Used Second Hand Smoke Exposure: No service: No Current occupational status: retired Cognitive needs: No Hearing needs: No Vision needs: Yes (glasses) Review of Systems Const Denies fatigue, Denies fever(s), Denies night sweats, Denies poor appetite and Denies weight loss Eyes Details: Glasses Reports requires corrective lenses ENT Reports Normal hearing present, Denies dental pain, Denies dysphagia, Denies hearing loss, Denies mouth pain, Denies odynophagia, Denies throat swelling, Denies tongue swelling and Reports other (Dentition adequate) Card Reports no additional complaints Resp Reports no additional complaints GI Details: Denies abdominal pain, Denies melena, Denies bloating, Denies hematochezia, Reports constipation, Denies GI cramping, Denies dysphagia, Denies excessive flatus, Denies early satiety, Reports heartburn, Denies diarrhea, Denies nausea, Denies odynophagia, Denies vomiting and Denies hematemesis Skin/Breast Denies pruritus, Denies lesions, Denies rash and Denies jaundice Neuro Reports Normal hearing present and Denies Abnormal speech present Endo Denies fatigue Aller/Immun Denies throat swelling and Denies tongue swelling Physical Exam Vital Signs: Last Vital Signs Temp 88 F L 05/20/25 14:12 BP 126/71 05/20/25 14:12 BMI result Body Mass Index 21.0 Const General: cooperative, no acute distress, well developed and well groomed Nutritional Appearance: average body habitus and well nourished Orientation/consciousness: oriented to person, oriented to place and oriented to time Limitations: language barrier and other limitations HEENT Head: Yes normocephalic and Yes atraumatic Eyes General: appearance normal, both eyes and all related structures Pupils: Equal, round and reactive pupils present Neck Neck: Yes normal visual inspection and Yes no lymphadenopathy Thyroid: Thyroid normal Resp Effort & Inspection: normal respiratory effort and able to speak in complete sentences Auscultation: clear to auscultation bilaterally Cardio Rate: regular rate Rhythm: regular rhythm Heart sounds: Normal, physiologic split S2 sound present Peripheral pulses: radial pulses present and posterior tibial pulses present GI Inspection: No distended and No Abdominal panniculus present Palpation (GI): Soft to palpation, nontender, no guarding, not rigid and No hepatosplenomegaly present Percussion: Yes normal to percussion Auscultation: normal bowel sounds Rectal Exam - Female: deferred Skin General skin exam: no rashes or lesions noted, turgor normal, skin not dry, no jaundice, No spider nevi and no striae Rashes: no rashes Nails: normal Neuro General: oriented to person, oriented to place and oriented to time Cranial nerves: Yes Equal, round and reactive pupils present and Yes Normal hearing present Speech: No Abnormal speech present Extrem General: Yes normal to inspection, No clubbing, No cyanosis and No edema Psych Appearance: grossly normal and well kempt Mental Status: other Speech and movement: Normal speech and movement present Affect: normal affect Attitude: cooperative Thought process: Other thought process findings present Thought content: other Insight: Limited insight present (Psych) Judgement: Limited judgement present (Psych) Assessment & Plan Assessment & Plan (1) GERD (gastroesophageal reflux disease): Code(s): K21.9 - Gastro-esophageal reflux disease without esophagitis Category: Medical Qualifiers: Esophagitis presence: without esophagitis Qualified Code(s): K21.9 - Gastro-esophageal reflux disease without esophagitis (2) Chronic idiopathic constipation: Code(s): K59.04 - Chronic idiopathic constipation Category: Medical Plan Son translates per patient request She continues to do well on her Linzess, Colace, and pantoprazole 40 mg once a day. They continue to remains satisfied with the GI regimen. Return office visit in 1 year Medications: Refilled pantoprazole 40 mg PO DAILY 90 tabs 3RF K21.9 - Gastro-esophageal reflux disease without esophagitis linaclotide (Linzess) 290 mcg PO QAM 90 caps 3RF K59.04 - Chronic idiopathic constipation docusate sodium 100 mg PO TID 270 caps 0RF K21.9 - Gastro-esophageal reflux disease without esophagitis docusate sodium 100 mg PO TID 270 caps 0RF K21.9 - Gastro-esophageal reflux disease without esophagitis Coding Level of Care Code Est Pt Level 3 (86731) Diagnoses Gastroesophageal reflux disease without esophagitis K21.9 Esophagitis presence: without esophagitis Chronic idiopathic constipation K59.04
[2025-05-20 14:12] VITALS: BP 126/71; TEMP 31.1; BMI 21.0
--- OUTSIDE RECORDS SUMMARY | 2025-05-20 14:37 | XMS_ITS | Patient Health Record ---
Author Organization [facility] Address [address] [place] [id number] Care Team Providers Care Carpet Inspector Finished Name Role Phone [place] Spivey Unavailable [phone] Reason For Referral No Information Plan Of Treatment No Information
== END 2025-05-20 14:39 | disposition home or self-care (01) ==
LOC: HO.HGI 14:06
PROVIDERS: PCP Internal Medicine; Visit Provider Nurse Practitioner
DX: K21.9 Gastro-esophageal reflux disease without esophagitis (principal); K59.04 Chronic idiopathic constipation
CPT/HCPCS: 99213

== ENCOUNTER → 2025-05-20 14:06 | Outpatient (BNVA) | payer MEDICARE, SELFPAY | PROVIDERS: PCP Internal Medicine; Visit Provider Nurse Practitioner | DX: K21.9 Gastro-esophageal reflux disease without esophagitis (principal); K59.04 Chronic idiopathic constipation | CPT/HCPCS: 99212 ==

== ENCOUNTER 2025-06-07 15:49 | Outpatient (AMB) | payer MEDICARE, SELFPAY ==
--- NOTE | 2025-06-07 16:00 | MHC.PC.OV ---
Vital Signs 06/07/25 16:02 Height 4 ft 11 in Weight 102 lb BMI 20.6 BP 132/70 Blood Pressure Location Lt brachial Position Sitting Pulse 76 Pulse Source Pulse Oximeter Temp 97.5 F Temp Source Temporal Artery Scan Pulse Oximetry (%) 100 Oxygen Delivery Method Room Air Intake Visit Reasons: 6 month follow up - see comments Intake Note: Patient is here to follow up on DM, Hypercholesterolemia. 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 Carbon Brush Maker: Present Accompanied by: Spouse Allergies No Known Allergies (No Known Allergies*) Allergy (Verified 06/07/25 16:02) Tobacco use date assessed: 06/07/25 Fall risk assessment: No Falls in past year Last assessed Fall Risk: 06/07/25 Dental Screening Dental Screen Date: 09/17/24 [facility] Medical History Mixed dementia History of pulmonary embolism Hypertension Hypertriglyceridemia Anemia Vitamin B12 deficiency GERD (gastroesophageal reflux disease) Paranoid schizophrenia Depression Type 2 diabetes mellitus with hyperglycemia Surgical History History of esophagogastroduodenoscopy (EGD) Hx of colonoscopy Family History Mother Diabetes Social History Household Members: Spouse Housing: House Are you a primary mall plant caretaker to a significant other at home: No Do you presently have visiting nurse or other home services: No Alcohol intake: never Patient Tobacco Use Status: Never used Tobacco e-Cigarette/Vaping Use: Never Used Second Hand Smoke Exposure: No service: No Current occupational status: retired Cognitive needs: No Hearing needs: No Vision needs: Yes (glasses) Questionnaire Thrive Questionnaire Date Thrive assessed: 09/17/24 SHERIF-7 AMB Questionnaire SHERIF-7 Date SHERIF - 7 assessed: 09/17/24 Source: Developed by Drs. Berlin Dubois, Lakshmi Bob, Pratik Kelly and colleagues, with an educational catalina from [employer]. Physical exam (Primary Care) Vital Signs: Last Vital Signs Temp 97.5 F 06/07/25 16:02 Pulse 76 06/07/25 16:02 BP 132/70 06/07/25 16:02 Pulse Ox 100 06/07/25 16:02 Oxygen Delivery Method Room Air 06/07/25 16:02 BMI result Body Mass Index 20.6 Tobacco/Smoking Status: Tobacco use Status Tobacco use date assessed 06/07/25 06/07/25 16:07 Patient Tobacco Use Status Never used Tobacco 06/07/25 16:07 e-Cigarette/Vaping Use Never Used 06/07/25 16:07 Thrive Assessment: Date of Thrive Assessment Date Thrive assessed 09/17/24 06/07/25 16:07 Const General: alert; No acute distress Eyes Conjunctivae: conjunctivae normal Resp Auscultation: clear to auscultation bilaterally Cardio Rate: regular rate Rhythm: regular rhythm GI Inspection: Yes normal to inspection Extrem General: Yes normal to inspection and No edema Coding Level of Care Code Est Pt Level 4 (98777) Complex EM visit Add On G2211 Diagnoses Type 2 diabetes mellitus with hyperglycemia, without long-term current use of insulin E11.65 Diabetes mellitus correction insulin use: without extermination inspector use Hypercholesterolemia E78.00 Recurrent major depression F33.9 Gastroesophageal reflux disease without esophagitis K21.9 Esophagitis presence: without esophagitis Chronic idiopathic constipation K59.04 Mixed dementia G30.9; F01.50; F02.80 Assessment & Plan Assessment & Plan (1) Type 2 diabetes mellitus with hyperglycemia: Comment: Dr. Lema Code(s): E11.65 - Type 2 diabetes mellitus with hyperglycemia Category: Medical Qualifiers: Diabetes mellitus extermination inspector insulin use: without extermination inspector use Qualified Code(s): E11.65 - Type 2 diabetes mellitus with hyperglycemia Plan: Decrease the amount of carbohydrate intake, pasta, bread, rice and potatoes are all sugar and that is aside from all the sweet stuff, remember that fruits are good but they are Sweet also. Hemoglobin A1c goal of less than 7.0. Patient is diet controlled (2) Hypercholesterolemia: Code(s): E78.00 - Pure hypercholesterolemia, unspecified Category: Medical Plan: Avoid fried foods, chicken skin, eggs, butter margarine, pastries and meat. Be it pork or beef they have a lot of cholesterol LDL goal of less than 100 and triglyceride of less than 150 patient on simvastatin 5 mg once a day (3) Recurrent major depression: Comment: Dr. Croft (07/2020) every 3 weeks CHD Code(s): F33.9 - Major depressive disorder, recurrent, unspecified Category: Medical Plan: Continue with counseling and therapy. On olanzapine mirtazapine fluoxetine benztropine (4) GERD (gastroesophageal reflux disease): Code(s): K21.9 - Gastro-esophageal reflux disease without esophagitis Category: Medical Qualifiers: Esophagitis presence: without esophagitis Qualified Code(s): K21.9 - Gastro-esophageal reflux disease without esophagitis Plan: Avoid the foods that causes that usually spicy foods, tomato products, juices, coffee, soda and foods that your sensitive to. After eating do not lie down, allow 3-4 hours before in lie down. And keep the head of bed above 30 degrees to avoid the acid from going up. (5) Chronic idiopathic constipation: Code(s): K59.04 - Chronic idiopathic constipation Category: Medical Plan: Three rules for constipation 1. Diet need to have a high fiber diet less of meat 2. Increase oral fluids 3. Exercise on Linzess (6) Mixed dementia: Comment: worsened by schizophrenia , medications, PTSD etc. Code(s): G30.9 - Alzheimer's disease, unspecified; F01.50 - Vascular dementia, unspecified severity, without behavioral disturbance, psychotic disturbance, mood disturbance, and anxiety; F02.80 - Dementia in other diseases classified elsewhere, unspecified severity, without behavioral disturbance, psychotic disturbance, mood disturbance, and anxiety Category: Medical Plan: Supportive treatment Plan History of Present Illness The patient is a 74-year-old female presenting for follow-up of multiple chronic conditions including diabetes mellitus, hypertension, and mixed dementia. The patient has a history of diabetes mellitus, which is currently diet-controlled with a hemoglobin A1c goal of less than 7.0%. Her last hemoglobin A1c was 6.1, indicating good control, although it has increased slightly from 5.9 in September. Hypertension is another chronic condition being managed, with a focus on maintaining blood pressure within normal limits. The patient has a history of pulmonary embolism diagnosed in 2010 and follows up with hematology oncology for this condition and anemia. She is seen on a yearly basis for these conditions. Hypercholesterolemia is managed with simvastatin 5 mg daily, with a goal of maintaining LDL cholesterol below 100 mg/dL. Her last LDL was 74 mg/dL, and HDL was 81 mg/dL, indicating effective management. The patient also suffers from recurrent major depression and mixed dementia, for which she is on multiple medications including olanzapine, mirtazapine, and fluoxetine. Osteopenia was noted in April 2024, and she is advised to continue with supportive treatment. The patient experiences constipation and follows up with gastroenterology, managed with Linzess and Colace. Preventative care measures include a colonoscopy in February 2024, a mammogram in March 2025, and bone density screening in April 2024. Health Maintenance - Colonoscopy performed in February 2024 - Mammogram conducted in March 2025 - Bone density screening in April 2024 - Flu shot recommended for June - COVID-19 vaccination advised if last dose was over five months ago Social History - Patient maintains hydration and physical activity to prevent blood clots. - Dietary habits include consumption of bananas and sugar-free candies. Review of Systems - Gastrointestinal: Reports constipation, managed with Linzess and Colace. - Genitourinary: Denies nocturia. Physical Exam Results - Labs: Hemoglobin A1c was 6.1, LDL 74 mg/dL, HDL 81 mg/dL. - Tests: Last colonoscopy in February 2024, mammogram in March 2025, bone density screening in April 2024. Plan Patient was informed and verbally consented to the use of an ambient scribe for clinic note documentation during this visit. 1. Diabetes Mellitus The patient's diabetes mellitus is currently diet-controlled with a hemoglobin A1c goal of less than 7.0%. Her last hemoglobin A1c was 6.1, indicating good control, although it has increased slightly from 5.9 in September. 2. Hypertension Hypertension management focuses on maintaining blood pressure within normal limits. 3. Pulmonary Embolism The patient has a history of pulmonary embolism diagnosed in 2010 and follows up with hematology oncology for this condition and anemia. She is seen on a yearly basis for these conditions. 4. Hypercholesterolemia Hypercholesterolemia is managed with simvastatin 5 mg daily, with a goal of maintaining LDL cholesterol below 100 mg/dL. Her last LDL was 74 mg/dL, and HDL was 81 mg/dL, indicating effective management. 5. Recurrent Major Depression The patient suffers from recurrent major depression and is on multiple medications including olanzapine, mirtazapine, and fluoxetine. 6. Mixed Dementia The patient is diagnosed with mixed dementia and continues with supportive treatment. 7. Osteopenia Osteopenia was noted in April 2024, and she is advised to continue with supportive treatment. 8. Anemia The patient follows up with hematology oncology for anemia and is seen on a yearly basis. 9. Constipation The patient experiences constipation and follows up with gastroenterology, managed with Linzess and Colace. Discussion Notes During the visit, we discussed the management of the patient's chronic conditions, including diabetes mellitus, hypertension, and hypercholesterolemia. We reviewed her current medications and the importance of maintaining her current regimen to manage her conditions effectively. We also discussed the need for regular follow-ups with hematology oncology for her history of pulmonary embolism and anemia. Preventative care measures, including vaccinations and screenings, were also addressed to ensure comprehensive health maintenance. Patient Instructions - Continue current diet to manage diabetes and maintain hemoglobin A1c below 7.0%. - Maintain blood pressure within normal limits as discussed. - Continue simvastatin 5 mg daily for cholesterol management. - Follow up with hematology oncology for pulmonary embolism and anemia management. - Schedule and attend regular preventative screenings, including colonoscopy and mammogram. - Receive flu shot in June and consider COVID-19 vaccination if last dose was over five months ago. Orders: Orders AMB Hemoglobin A1c Today E11.65 - Type 2 diabetes mellitus with hyperglycemia Comprehensive Met. Panel Today E78.00 - Pure hypercholesterolemia, unspecified, Z00.00 - Encounter for general adult medical examination without abnormal findings Free T4 (Free Thyroxine) Today Z00.00 - Encounter for general adult medical examination without abnormal findings Lipid Panel Today E78.00 - Pure hypercholesterolemia, unspecified Vitamin B12 and Folate Today M85.80 - Other specified disorders of bone density and structure, unspecified site, Z00.00 - Encounter for general adult medical examination without abnormal findings Vitamin D 25-OH Total Today M85.80 - Other specified disorders of bone density and structure, unspecified site, Z00.00 - Encounter for general adult medical examination without abnormal findings Microalbumin, Random (w Creat) Today E11.65 - Type 2 diabetes mellitus with hyperglycemia Complete Blood Count Auto Diff Today D64.9 - Anemia, unspecified, Z00.00 - Encounter for general adult medical examination without abnormal findings TSH reflex Free T4 Today Z00.00 - Encounter for general adult medical examination without abnormal findings Creatinine Urine Today E11.65 - Type 2 diabetes mellitus with hyperglycemia
[2025-06-07 16:02] VITALS: BP 132/70; PULSE 76; TEMP 36.4; O2SAT 100; BMI 20.6
--- OUTSIDE RECORDS SUMMARY | 2025-06-07 18:28 | XMS_ITS | Patient Health Record ---
Author Organization [facility] Address [address] [place] [id number] Care Team Providers Care Fruit And Vegetable Factory Worker Name Role Phone [place] Spivey Unavailable [phone] Reason For Referral No Information Plan Of Treatment No Information
== END 2025-06-07 16:27 | disposition home or self-care (01) ==
LOC: HO.HMCH 15:50
PROVIDERS: PCP Internal Medicine; Visit Provider Internal Medicine
DX: E11.65 Type 2 diabetes mellitus with hyperglycemia (principal); G30.9 Alzheimer's disease, unspecified; F01.50 Vascular dementia, unspecified severity, without behavioral disturbance, psychotic disturbance, mood disturbance, and anxiety; F02.80 Dementia in other diseases classified elsewhere, unspecified severity, without behavioral disturbance, psychotic disturbance, mood disturbance, and anxiety; E78.00 Pure hypercholesterolemia, unspecified; F33.9 Major depressive disorder, recurrent, unspecified; K21.9 Gastro-esophageal reflux disease without esophagitis; K59.04 Chronic idiopathic constipation

== ENCOUNTER → 2025-06-07 15:49 | Outpatient (BNVA) | payer MEDICARE, SELFPAY | PROVIDERS: PCP Internal Medicine; Visit Provider Internal Medicine | DX: E11.65 Type 2 diabetes mellitus with hyperglycemia (principal); E78.00 Pure hypercholesterolemia, unspecified; F33.9 Major depressive disorder, recurrent, unspecified; K21.9 Gastro-esophageal reflux disease without esophagitis; K59.04 Chronic idiopathic constipation; G30.9 Alzheimer's disease, unspecified; F01.50 Vascular dementia, unspecified severity, without behavioral disturbance, psychotic disturbance, mood disturbance, and anxiety; F02.80 Dementia in other diseases classified elsewhere, unspecified severity, without behavioral disturbance, psychotic disturbance, mood disturbance, and anxiety | CPT/HCPCS: 99212 ==

== ENCOUNTER 2025-09-03 08:24 | Outpatient (REF) | payer MEDICARE, MEDICAID, SELFPAY ==
--- OUTSIDE RECORDS SUMMARY | 2025-09-03 08:27 | XMS_ITS | Patient Health Record ---
Author Organization [facility] Address [address] [place] [id number] Care Team Providers Care Fulfillment Coordinator Name Role Phone Spivey [place] Unavailable [phone] Reason For Referral No Information Plan Of Treatment No Information
[2025-09-03 08:42] LABS: MANUAL DIFF FLAG NO
[2025-09-03 09:00] LABS: Hematocrit 35.6 % (37.0-47.0); Hemoglobin 11.9 g/dl (12.0-16.0); Imm Gran Abs Auto 0.03 X10*3/uL (0.00-0.03); Imm Gran Pct Auto 0.3 % (0.0-0.4); Lymphocytes Absolute Auto 3.1 X10*3/uL (1.2-4.9); Mean Corpuscular HGB Conc 33.4 g/dl (31.0-35.0); Mean Corpuscular Hemoglobin 28.1 pg (27.0-33.0); Mean Corpuscular Volume 84.2 fL (80.0-98.0); NRBC Abs Auto 0.000 X10*3/uL (0.0-0.012); NRBC Pct Auto 0.0 /100WBC (0.0-0.2); Platelet Count 286 X10*3/uL (160-400); Red Blood Count 4.23 X10*6/uL (4.20-5.50); White Blood Count 8.7 X10*3/uL (4.8-10.8)
[2025-09-03 09:53] LABS: Alanine Aminotransferase 19 U/L (0-31); Albumin Level 4.5 g/dL (3.5-5.0); Alkaline Phosphatase 53 U/L (39-117); Anion Gap 14 (12-20); Aspartate Amino Transferase 30 U/L (5-31); Blood Urea Nitrogen 13 mg/dL (9-16); Calcium 10.0 mg/dL (8.4-10.2); Carbon Dioxide 26 mmol/L (22-29); Chloride 104 mmol/L (96-108); Cholesterol 151 mg/dL (<200); Estimated Glomerular Filt Rate > 60; HDL Cholesterol 71 mg/dL (>40); Potassium 4.1 mmol/L (3.3-5.1); Sodium 140 mmol/L (135-145); Total Protein 7.7 g/dL (6.5-8.0); Triglycerides 89 mg/dL (<150)
[2025-09-03 10:08] LABS: Free T4 (Free Thyroxine) 1.07 ng/dL (0.71-1.85)
[2025-09-03 10:13] LABS: Folate 13.4 ng/mL (> or = 4.0); Vitamin B12 816 pg/mL (200-900)
== END 2025-09-03 08:25 | disposition home or self-care (01) ==
LOC: HO.LAB 08:24
PROVIDERS: PCP Internal Medicine; Visit Provider Internal Medicine
DX: Z00.00 Encounter for general adult medical examination without abnormal findings (principal); E78.00 Pure hypercholesterolemia, unspecified; M85.80 Other specified disorders of bone density and structure, unspecified site; E11.65 Type 2 diabetes mellitus with hyperglycemia; D64.9 Anemia, unspecified
CPT/HCPCS: 36415; 80053; 80061; 82043; 82306; 82570; 82607; 82746; 84439; 84443; 85025

== ENCOUNTER 2025-09-09 14:32 | Outpatient (AMB) | payer MEDICARE, SELFPAY ==
[2025-09-09 14:35] VITALS: BP 130/66; PULSE 90; TEMP 36.2; O2SAT 98; BMI 20.4
--- NOTE | 2025-09-09 14:35 | A.OFFPC_ITS ---
Vital Signs 09/09/25 14:35 Height 4 ft 11 in Weight 101 lb 4 oz BMI 20.4 BP 130/66 Blood Pressure Location Lt brachial Position Sitting Pulse 90 Pulse Source Pulse Oximeter Temp 97.1 F Temp Source Temporal Artery Scan Pulse Oximetry (%) 98 Oxygen Delivery Method Room Air Intake Visit Reasons: Follow Up Accompanied by: Spouse Allergies No Known Allergies (No Known Allergies*) Allergy (Verified 09/09/25 14:39) Tobacco use date assessed: 09/09/25 Fall risk assessment: No Falls in past year Last assessed Fall Risk: 09/09/25 Dental Screening Dental Screen Date: 09/09/25 Did you have a dental visit in the last 12 months?: Yes Did you have a dental problem in the last 6 months where you did not have access to dental care?: No Was dental information given to patient?: Patient has dentist HPI HPI Comments History of Present Illness Details History of Present Illness The patient is a 74-year-old female presenting for a follow-up visit for management of multiple chronic conditions. She has a history of type 2 diabetes mellitus, which is diet-controlled. Her HbA1c in August 2023 was 6.7%, and the most recent level was 6.2%. Her medical history is also significant for hypertension, hypercholesterolemia, GERD, and constipation. She has a history of a pulmonary embolism in 2010, for which she received one year of anticoagulation therapy. She also has mixed dementia and receives counseling and therapy. Recent blood work from August showed mild anemia that has improved, with a hemoglobin of 11.9 g/dL and hematocrit of 35.6%. Her LDL cholesterol was 63 mg/dL, and a recent blood sugar reading was 118 mg/dL. Other labs, including electrolytes, renal function, liver function, B12, vitamin D, folic acid, and thyroid studies, were within normal limits. Health screenings include a colonoscopy in February 2024 and a bone density scan in April 2024, both noted as up to date. Her last mammogram was in March 2025 with a recommendation for a repeat in 6 months, which is scheduled for September. Health Maintenance A follow-up visit is scheduled in 6 months for a complete physical exam. The patient was reminded to complete her follow-up mammogram scheduled for September. She has received the first of a two-part shingles vaccine and will need to follow up for the second dose. She was counseled on infection prevention, advising her to avoid contact with sick individuals despite being vaccinated. Social History - Nutrition: Patient reports a good appe tite. - Weight Management: She is experiencing a slow, unintentional weight loss, which is a concern. - Functional Status: She is able to walk a lot at home. Results - Labs (August): - HbA1c: 6.2% (Previous was 6.7% in [facility]2022). - Hemoglobin/Hematocrit: 11.9 g/dL / 35. 6% (noted as improved). - Blood sugar: 118 mg/dL. - LDL Cholesterol: 63 mg/dL. - WBC and platelet count: Within normal limits. - Electrolytes, renal function, liver fu nction, B12, vitamin D, folic acid, and thyroid levels: All within normal limits. - Urinalysis: No proteinuria. - Tests and Diagnostics: - Bone Density Scan (April 2024): Good. - Colonoscopy (February 2024): Up-to-date. [facility] Medical History (Updated 09/09/25 @ 14:52 by Poly Burnett MD) Hypertension Mixed dementia History of pulmonary embolism Hypertriglyceridemia Anemia Vitamin B12 deficiency GERD (gastroesophageal reflux disease) Paranoid schizophrenia Depression Type 2 diabetes mellitus with hyperglycemia Surgical History History of esophagogastroduodenoscopy (EGD) Hx of colonoscopy Family History Mother Diabetes Social History Household Members: Spouse Housing: House Are you a primary zoo caretaker to a significant other at home: No Do you presently have visiting nurse or other home services: No Alcohol intake: never Patient Tobacco Use Status: Never used Tobacco e-Cigarette/Vaping Use: Never Used Second Hand Smoke Exposure: No service: No Current occupational status: retired Cognitive needs: No Hearing needs: No Vision needs: Yes (glasses) Questionnaire PHQ-9 Over the last 2 weeks, how often have you been bothered by any of the following problems? 1. Little interest or pleasure in doing things: not at all 2. Feeling down, depressed, or hopeless: not at all 3. Trouble falling or staying asleep, or sleeping too much: not at all 4. Feeling tired or having little energy: not at all 5. Poor appetite or overeating: not at all 6. Feeling bad about yourself - or that you are a failure or have let yourself or your family down: not at all 7. Trouble concentrating on things, such as reading the newspaper or watching television: not at all 8. Moving or speaking so slowly that other people could have noticed. Or the opposite - being so fidgety or restless that you have been moving around a lot more than usual: not at all 9. Thoughts that you would be better off or of hurting yourself in some way: not at all Total score: 0 Depression Screening Interpretation: Negative Depression Screening Done: Yes Source: Developed by Drs. Berlin Dubois, Lakshmi Bob, Pratik Kelly and colleagues, with an educational catalina from [email or web address]. Thrive Questionnaire Date Thrive assessed: 09/17/24 I am a: Patient What is your living situation today?: I have a steady place to live Within the past 12 months, did the food you bought not last and you didn't have the money to get more?: Never true Within the past 12 months, did you worry whether your food would run out before you got money to buy more?: Never true Do you have trouble paying for medicines?: No Do you have trouble getting transportation to medical appointments?: No Do you have trouble paying your heating and electricity bill?: No Do you have trouble taking care of your child, family member or friend?: No Do you have trouble with day-to-day activities such as bathing, preparing meals, shopping, managing finances, etc.?: No Are you currently unemployed and looking for a job?: No Are you interested in more education?: No Currently or been in a relationship where the following occur: No concerns reported THRIVE Score: 0 AUDIT C Alcohol Use Questionnaire (AUDIT-C) 1. How often do you have a drink containing alcohol?: Never 3. How often do you have six or more drinks on one occasion?: Never Total Score: 0 SHERIF-7 AMB Questionnaire SHERIF-7 Date SHERIF - 7 assessed: 09/17/24 Feeling nervous, anxious, or on edge: 0 = Not at all Not being able to stop or control worryin = Not at all Worrying too much about different things: 0 = Not at all Trouble relaxin = Not at all Being so restless that it is hard to sit still: 0 = Not at all Becoming easily annoyed or irritable: 0 = Not at all Feeling afraid as if something awful might happen: 0 = Not at all Total SHERIF-7 score (0-4 normal; 5-9 mild; 10-14 moderate; 15-21 severe): 0 Source: Developed by Drs. Berlin Dubois, Lakshmi Bob, Pratik Kelly and colleagues, with an educational catalina from [email or web address]. Review of Systems Narrative Review of Systems - Constitutional: Reports slow, unintentional weight loss. - Gastrointestinal: Reports good appetite; reports constipation. - Cardiovascular: Denies swelling in the feet. Physical exam (Primary Care) Vital Signs: Last Vital Signs Temp 97.1 F 09/09/25 14:35 Pulse 90 09/09/25 14:35 BP 130/66 09/09/25 14:35 Pulse Ox 98 09/09/25 14:35 Oxygen Delivery Method Room Air 09/09/25 14:35 BMI result Body Mass Index 20.4 Tobacco/Smoking Status: Tobacco use Status Tobacco use date assessed 09/09/25 09/09/25 14:40 Patient Tobacco Use Status Never used Tobacco 09/09/25 14:40 e-Cigarette/Vaping Use Never Used 09/09/25 14:40 PHQ-9: PHQ-9 Score PHQ-9: Total score 0 09/09/25 14:53 Depression Screening Interpretation: Negative Thrive Assessment: Date of Thrive Assessment Date Thrive assessed 09/17/24 09/09/25 14:40 Currently or been in a relationship where the following occur: No concerns reported Narrative Physical Exam - Vitals: Blood pressure is noted to be good. - Point of Care Testing: Fingerstick blood glucose is 118 mg/dL. - Respiratory: Lungs are clear on auscultation. - Extremities: No pedal edema observed. Const General: alert; No acute distress Eyes Conjunctivae: conjunctivae normal Resp Auscultation: clear to auscultation bilaterally Cardio Rate: regular rate Rhythm: regular rhythm GI Inspection: Yes normal to inspection Extrem General: Yes normal to inspection and No edema Coding Level of Care Code Est Pt Level 4 (80198) Add On Problem Visit Only Diagnoses Type 2 diabetes mellitus with hyperglycemia, without long-term current use of insulin E11.65 Diabetes mellitus extermination inspector insulin use: without shelter use Hypercholesterolemia E78.00 Gastroesophageal reflux disease without esophagitis K21.9 Esophagitis presence: without esophagitis Mixed dementia G30.9; F01.50; F02.80 Recurrent major depression F33.9 Assessment & Plan Assessment & Plan (1) Type 2 diabetes mellitus with hyperglycemia: Comment: Dr. Lema Code(s): E11.65 - Type 2 diabetes mellitus with hyperglycemia Category: Medical Qualifiers: Diabetes mellitus extermination inspector insulin use: without extermination inspector use Qualified Code(s): E11.65 - Type 2 diabetes mellitus with hyperglycemia Plan: Decrease the amount of carbohydrate intake, pasta, bread, rice and potatoes are all sugar and that is aside from all the sweet stuff, remember that fruits are good but they are Sweet also. Hemoglobin A1c goal of less than 6.5 diet controlled (2) Hypercholesterolemia: Code(s): E78.00 - Pure hypercholesterolemia, unspecified Category: Medical Plan: Avoid fried foods, chicken skin, eggs, butter margarine, pastries and meat. Be it pork or beef they have a lot of cholesterol LDL goal of less than 100 and triglyceride of less than 150 (3) GERD (gastroesophageal reflux disease): Code(s): K21.9 - Gastro-esophageal reflux disease without esophagitis Category: Medical Qualifiers: Esophagitis presence: without esophagitis Qualified Code(s): K21.9 - Gastro-esophageal reflux disease without esophagitis Plan: Avoid the foods that causes that usually spicy foods, tomato products, juices, coffee, soda and foods that your sensitive to. After eating do not lie down, allow 3-4 hours before in lie down. And keep the head of bed above 30 degrees to avoid the acid from going up. (4) Mixed dementia: Comment: worsened by schizophrenia , medications, PTSD etc. Code(s): G30.9 - Alzheimer's disease, unspecified; F01.50 - Vascular dementia, unspecified severity, without behavioral disturbance, psychotic disturbance, mood disturbance, and anxiety; F02.80 - Dementia in other diseases classified elsewhere, unspecified severity, without behavioral disturbance, psychotic disturbance, mood disturbance, and anxiety Category: Medical Plan: Continue supportive treatment (5) Recurrent major depression: Comment: Dr. Croft (07/2020) every 3 weeks CHD Code(s): F33.9 - Major depressive disorder, recurrent, unspecified Category: Medical Plan: Continue with counseling and therapy Plan Plan Patient was informed and verbally consented to the use of an ambient scribe for clinic note documentation during this visit. 1. Diabetes Mellitus, Type 2 The patient's diabetes is considered controlled, with a recent HbA1c of 6.2%, which is below the goal of 6.5%. She manages her condition with diet. Despite a recent fasting blood sugar of 118 mg/dL, no changes to the plan will be made at this time due to concern for her ongoing weight loss. Will continue to monitor her blood sugar. 2. Hypertension Her blood pressure is well-controlled. Continue current management. 3. Hypercholesterolemia Her cholesterol is well-controlled with an LDL of 63 mg/dL, meeting the goal of less than 100 mg/dL. Continue current management. 4. Gastroesophageal Reflux Disease Continue supportive treatment for reflux. 5. Anemia The patient has a mild anemia which is noted to be improving, with hemoglobin now 11.9 g/dL. Will continue to monitor. 6. Constipation The patient uses docusate as needed for constipation. Continue supportive care and ensure adequate hydration. 7. Mixed Dementia The plan is to continue with counseling and therapy. Discussion Notes I reviewed the patient's recent lab results with her and her daughter, highlighting the improvement in her anemia, with hemoglobin now at 11.9 g/dL. I explained that while her fasting blood sugar was slightly elevated at 118 mg/dL, I am not pushing for aggressive management due to her concurrent weight loss, and I advised her against losing any more weight. I clarified that she has a diagnosis of controlled diabetes, as her previous HbA1c of 6.7% met the diagnostic criteria, and her current value of 6.2% indicates good, diet-based control. I also praised her excellent cholesterol control, with an LDL of 63 mg/dL. We discussed her recent vaccinations, including influenza, COVID, and the first dose of the shingles vaccine. I provided counseling that vaccines reduce risk but do not provide complete immunity, and she should continue to avoid people who are sick. We confirmed her upcoming mammogram appointment in September and scheduled a follow-up visit for a complete physical exam in six months. Patient Instructions - It is important that you do not lose any more weight. - Your diabetes is well-controlled with your diet. We will continue to keep an eye on your sugar levels. - Please make sure to go to your scheduled mammogram appointment in September. - You have received the first of two shingles shots. You will need to get the second dose to be fully protected. - Even though you have received your vaccines, you can still get sick. Please stay away from people who are coughing, sneezing, or seem ill. - Drink plenty of water throughout the day. - We will see you back in the office in about 6 months for a follow-up visit and a full physical exam. Orders: Orders AMB Hemoglobin A1c Today Z13.9 - Encounter for screening, unspecified
--- OUTSIDE RECORDS SUMMARY | 2025-09-09 14:35 | XMS_ITS | Patient Health Record ---
Author Organization [facility] Address [address] [place] [id number] Care Team Providers Care Director Facilities Maintenance Name Role Phone Spivey Berlin Unavailable [phone] Reason For Referral No Information Plan Of Treatment No Information
== END 2025-09-09 15:01 | disposition home or self-care (01) ==
LOC: HO.HMCH 14:33
PROVIDERS: PCP Internal Medicine; Visit Provider Internal Medicine
DX: E11.65 Type 2 diabetes mellitus with hyperglycemia (principal); E78.00 Pure hypercholesterolemia, unspecified; K21.9 Gastro-esophageal reflux disease without esophagitis; G30.9 Alzheimer's disease, unspecified; F01.50 Vascular dementia, unspecified severity, without behavioral disturbance, psychotic disturbance, mood disturbance, and anxiety; F02.80 Dementia in other diseases classified elsewhere, unspecified severity, without behavioral disturbance, psychotic disturbance, mood disturbance, and anxiety; F33.9 Major depressive disorder, recurrent, unspecified

== ENCOUNTER → 2025-09-09 14:32 | Outpatient (BNVA) | payer MEDICARE, SELFPAY | PROVIDERS: PCP Internal Medicine; Visit Provider Internal Medicine | DX: E11.9 Type 2 diabetes mellitus without complications (principal); I10 Essential (primary) hypertension; E78.00 Pure hypercholesterolemia, unspecified; K21.9 Gastro-esophageal reflux disease without esophagitis; G30.9 Alzheimer's disease, unspecified; F01.50 Vascular dementia, unspecified severity, without behavioral disturbance, psychotic disturbance, mood disturbance, and anxiety; F02.80 Dementia in other diseases classified elsewhere, unspecified severity, without behavioral disturbance, psychotic disturbance, mood disturbance, and anxiety; D64.9 Anemia, unspecified | CPT/HCPCS: 99212 ==